=== PATIENT | female | born 1990 | race Caucasian/White ===

== ENCOUNTER 2018-12-14 21:54 | Emergency (ER) | payer BC, MEDICAID ==
[~2018-12-14] VITALS: Ht 165.1 cm; Wt 90.7 kg
[~2018-12-14 21:54] MED LIST: FLUO40CA
--- OUTSIDE RECORDS SUMMARY | 2018-12-14 22:01 | XMS REPORT | Referral Summary ---
Author Author [facility] Organization [facility] Address Unknown Phone Unavailable Care Team Providers Care Billing Department Supervisor Name Role Phone Jack Mistrymie Zeke PCP Encounter VC Date(s): 06/22/17 - 06/22/17 [facility] [address] [place], [place] [address] Discharge Diagnosis: Otalgia Discharge Diagnosis: Acute bronchitis Discharge Disposition: 01-Home or Self Care Attending Physician: Raven Iniguez Vital Signs Most recent to 1 oldest [Reference Range]: Peripheral Pulse 103 bpm Rate [60-100 bpm] *HI* (06/22/17 11:37 AM) Blood Pressure 120/68 mmHg [90-140/60-90 mmHg] (06/22/17 11:37 AM) SpO2 98 % (06/22/17 11:37 AM) Problem List Condition Effective Dates Status Health Status Informant Anemia(Confirmed) Active Asthma(Confirmed) Active Bipolar affective Active disorder(Confirmed) Chicken Active pox(Confirmed) Depression(Confirmed Active ) Hearing Active loss(Confirmed) Obesity(Confirmed) Active patient Allergies, Adverse Reactions, Alerts Substance Reaction Severity Status doxycycline1 Active erythromycin Vomit Active penicillin Rash Active 1Nausea Medications Adderall 20 mg oral tablet 20 mg 1 tabs, Oral, BID, # 60 tabs, 0 Refill(s) Start Date: 06/08/17 Status: Ordered biotin Oral, Daily, 0 Refill(s) Start Date: 12/25/16 Status: Ordered chromium picolinate Oral, Daily, 0 Refill(s) Start Date: 12/25/16 Status: Ordered folic acid Daily, 0 Refill(s) Start Date: 12/25/16 Status: Ordered Iron Chews 15 mg, Oral, Daily, 0 Refill(s) Start Date: 12/25/16 Status: Ordered lamoTRIgine 150 mg oral tablet 150 mg 1 tabs, Oral, Daily, # 30 tabs, 2 Refill(s), Pharmacy: [place], [place], 1 tabs Oral Daily Start Date: 06/08/17 Status: Ordered Lexapro 20 mg oral tablet 20 mg 1 tabs, Oral, Daily, # 30 tabs, 2 Refill(s), Pharmacy: [place], [place], 1 tabs Oral Daily Start Date: 06/08/17 Status: Ordered meloxicam 15 mg oral tablet See Instructions, TAKE ONE TABLET BY MOUTH DAILY, # 90 tabs, 1 Refill(s), Pharmacy: [place], [place] Start Date: 02/09/17 Status: Ordered Mirena 52 mg intrauteral device 1 Each, IntraUteral, Once, # 1 Each, 0 Refill(s) Start Date: 01/29/14 Status: Ordered sulfamethoxazole-trimethoprim 800 mg-160 mg oral tablet 1 tabs, Oral, BID, X 10 days, # 20 tabs, 0 Refill(s), Pharmacy: [place], [place] Start Date: 06/22/17 Stop Date: 07/02/17 Status: Ordered Vitamin B1 Daily, 0 Refill(s) Start Date: 12/25/16 Status: Ordered Vitamin B12 Daily, 0 Refill(s) Start Date: 12/25/16 Status: Ordered Vitamin B6 Daily, 0 Refill(s) Start Date: 12/25/16 Status: Ordered Vitamin C Daily, 0 Refill(s) Start Date: 12/25/16 Status: Ordered Vitamin D3 Daily, 0 Refill(s) Start Date: 12/25/16 Status: Ordered Results No data available for this section Immunizations No data available for this section Procedures Procedure Date Related Diagnosis Body Site Appendectomy section Laparoscopy1 1endometriosis Social History Social History Type Response Smoking Status Current every day smoker; Type: Cigarettes; Tobacco use per day: Pack; Started at age: 23; entered on: 01/29/14 Assessment and Plan Extracted from: Title: Office Visit Note Author: Raven Iniguez Date: 06/22/17 Acute bronchitis Patient's symptoms have been present for almost 2 weeks. Would like her to start on Septra DS. Encouraged her to continue with Flonase steroid nasal spray as well as nasal saline spray and Mucinex. Handout was given. Follow- up if no improvement. Ordered: Office Visit Level 3 Est 48295 Otalgia She may use ulze-ydy-[id number] pain drops, Auralgan. Did let her know that I believe starting the Flonase back again will be beneficial for her. Ordered: Office Visit Level 3 Est 82980
--- OUTSIDE RECORDS SUMMARY | 2018-12-14 22:01 | XMS REPORT | Referral Summary ---
Author Author [facility] Organization [facility] Address Unknown Phone Unavailable Care Team Providers Care Set Up And Lay Out Inspector Name Role Phone Ivana Mistry PCP Encounter VC Date(s): 03/02/15 - 03/02/15 [facility] [address] [place], [place] [address] Discharge Diagnosis: Fatigue Discharge Disposition: 01-Home or Self Care Attending Physician: Ivana Mistry MD Admitting Physician: Ivana Mistry MD Vital Signs Most recent to 1 oldest [Reference Range]: Peripheral Pulse 76 bpm Rate [60-100 bpm] (03/02/15 3:14 PM) Blood Pressure 110/56 mmHg [90-140/60-90 mmHg] (03/02/15 3:14 PM) SpO2 98 % (03/02/15 3:14 PM) Problem List Condition Effective Dates Status Health Status Informant Anemia(Confirmed) Active Asthma(Confirmed) Active Bipolar affective Active disorder(Confirmed) Chicken Active pox(Confirmed) Depression(Confirmed Active ) Hearing Active loss(Confirmed) Obesity(Confirmed) Active patient Allergies, Adverse Reactions, Alerts Substance Reaction Severity Status penicillin Rash Active Medications lamoTRIgine 150 mg oral tablet See Instructions, TAKE 1 TABLET BY MOUTH EVERY DAY, # 90 tabs, 2 Refill(s), eRx : [id number], TAKE 1 TABLET BY MOUTH EVERY DAY Start Date: 03/24/15 Status: Ordered Mirena 52 mg intrauteral device 1 Each, IntraUteral, Once, # 1 Each, 0 Refill(s) Start Date: 01/29/14 Status: Ordered Wellbutrin SR 150 mg/12 hours oral tablet, extended release 150 mg 1 tabs, Oral, BID, # 60 tabs, 0 Refill(s), Pharmacy: [facility], 1 tabs Oral BID Start Date: 08/10/15 Status: Ordered Results No data available for this section Immunizations No data available for this section Procedures Procedure Date Related Diagnosis Body Site Appendectomy section Laparoscopy1 1endometriosis Social History Social History Type Response Smoking Status Current every day smoker; Type: Cigarettes; Tobacco use per day: Pack; Started at age: 23 Assessment and Plan Extracted from: Title: Office Visit Note Author: Ivana Mistry MD Date: 03/02/15 Assessment/Plan Fatigue We will make arrangements for the patient to be seen in consultation by sleep medicine for consideration of a sleep study. Sleep hygiene was discussed. Ordered: Office Visit Level 2 Est 99464
--- OUTSIDE RECORDS SUMMARY | 2018-12-14 22:01 | XMS REPORT | Referral Summary ---
Author Author [facility] Organization [facility] Address Unknown Phone Unavailable Care Team Providers Care Urologist Name Role Phone Ivana Mistry PCP Encounter VC Date(s): 08/10/15 - 08/10/15 [facility] [address] [place], [place] [address] Discharge Diagnosis: Depression, major, recurrent Discharge Disposition: 01-Home or Self Care Attending Physician: Ivana Mistry MD Admitting Physician: Ivana Mistry MD Vital Signs Most recent to 1 oldest [Reference Range]: Peripheral Pulse 94 bpm Rate [60-100 bpm] (08/10/15 2:55 PM) Blood Pressure 144/76 mmHg [90-140/60-90 mmHg] *HI* (08/10/15 2:55 PM) SpO2 98 % (08/10/15 2:55 PM) Problem List Condition Effective Dates Status Health Status Informant Anemia(Confirmed) Active Asthma(Confirmed) Active Bipolar affective Active disorder(Confirmed) Chicken Active pox(Confirmed) Depression(Confirmed Active ) Hearing Active loss(Confirmed) Obesity(Confirmed) Active patient Allergies, Adverse Reactions, Alerts Substance Reaction Severity Status penicillin Rash Active Medications lamoTRIgine 150 mg oral tablet See Instructions, TAKE 1 TABLET BY MOUTH EVERY DAY, # 90 tabs, 2 Refill(s), eRx : [facility] [id number], TAKE 1 TABLET BY MOUTH EVERY DAY Start Date: 03/24/15 Status: Ordered Mirena 52 mg intrauteral device 1 Each, IntraUteral, Once, # 1 Each, 0 Refill(s) Start Date: 01/29/14 Status: Ordered Wellbutrin SR 150 mg/12 hours oral tablet, extended release 150 mg 1 tabs, Oral, BID, # 60 tabs, 0 Refill(s), Pharmacy: [facility] [id number], 1 tabs Oral BID Start Date: 08/10/15 [...] Visit Note Author: Ivana Mistry MD Date: 08/10/15 Assessment/Plan Depression, major, recurrent Switch to WellbutrinSR 150 mg daily for 3 days then increase the dose to twice a day thereafter. She was advised to call us in a fewweeks with an updateher symptoms. She may need to be referred back to psychiatry if she does not respondto current medical therapy. Sheis somewhat limitedby cost constraints any intolerability issues with previously tried medication. Ordered: Office Visit Level 3 Est 67427 Orders: buPROPion, 150 mg 1 tabs, Oral, BID, # 60 tabs, 0 Refill(s), Pharmacy : [facility] [id number], 1 tabs Oral BID
--- OUTSIDE RECORDS SUMMARY | 2018-12-14 22:01 | XMS REPORT | Referral Summary ---
Author Author [facility] Organization [facility] Address Unknown Phone Unavailable Care Team Providers Care Cage Tender Name Role Phone Ivana Mistry PCP Encounter VC Date(s): 02/13/18 - 02/13/18 [facility] [address] [place] [id number] Encounter Diagnosis Annual physical exam (Discharge Diagnosis) - 02/13/18 Moderate major depression (Discharge Diagnosis) - 02/13/18 Adult attention deficit disorder (Discharge Diagnosis) - 02/13/18 Discharge Disposition: 01-Home or Self Care Attending Physician: Ivana Mistry MD Admitting Physician: Ivana Mistry MD Vital Signs Most recent to 1 oldest [Reference Range]: Peripheral Pulse 84 bpm Rate [60-100 bpm] (02/13/18 7:35 AM) Blood Pressure 110/60 mmHg [90-140/60-90 mmHg] (02/13/18 7:35 AM) SpO2 100 % (02/13/18 7:35 AM) Problem List Condition Effective Dates Status [...] # 60 tabs, 0 Refill(s) Start Date: 02/13/18 Status: Ordered escitalopram 20 mg oral tablet See Instructions, TAKE ONE TABLET BY MOUTH EVERY DAY, # 30 tabs, 1 Refill(s), eRx: [facility]- [place], [place] Start Date: 01/15/18 Status: Ordered lamoTRIgine 150 mg oral tablet See Instructions, TAKE ONE TABLET BY MOUTH EVERY DAY, # 30 tabs, 1 Refill(s), eRx: [place], [place], TAKE ONE TABLET BY MOUTH EVERY DAY Start Date: 11/01/17 Status: Ordered meloxicam 15 mg oral tablet See Instructions, TAKE ONE TABLET BY MOUTH DAILY, # 90 tabs, eRx: [place], [place], TAKE ONE TABLET BY MOUTH DAILY Start Date: 01/09/18 Status: Ordered Mirena 52 mg intrauteral device 1 Each, IntraUteral, Once, # 1 Each, 0 Refill(s) Start Date: 01/29/14 Status: Ordered Results No data available for this section Immunizations No data available for this section Procedures Procedure Date Related Diagnosis Body Site Status Laparoscopic hysterectomy1 02/05/18 Completed Date of last PAP smear 12/26/17 Completed Appendectomy Completed section Completed Laparoscopy2 Completed 1right ovary and fallopion tube removal 2endometriosis Social History Social History Type Response Smoking Status Current every day smoker; Type: Cigarettes; Tobacco use per day: Pack; Started at age: 23; entered on: 01/29/14 Assessment and Plan Extracted from: Title: Office Visit Note Author: Ivana Mistry MD Date: 02/13/18 Adult attention deficit disorder Continue current medications at this time. Ordered: Comprehensive Metabolic Panel Lipid Panel Periodic Comp Preventive Med 18 to 39 years Est 43386 Annual physical exam Age-appropriate screening discussed. She will return for fasting lab. Continue follow-up with her yard manager as previously instructed. Ordered: CBC w/ Differential Comprehensive Metabolic Panel Lipid Panel Periodic Comp Preventive Med 18 to 39 years Est 16247 Moderate major depression Continue current medication at this time Ordered: Comprehensive Metabolic Panel Lipid Panel Periodic Comp Preventive Med 18 to 39 years Est 75704 TSH with Reflex Free T4 Carpal tunnel syndrome, bilateral. Surgery scheduled on the right side in the near future.
--- OUTSIDE RECORDS SUMMARY | 2018-12-14 22:01 | XMS REPORT | Referral Summary ---
Author Author [facility] Organization [facility] Address Unknown Phone Unavailable Care Team Providers Care Sulfuric Acid Plant Operator Name Role Phone Ivana Mistry PCP Encounter VC Date(s): 12/18/14 - 12/18/14 [facility] [address] [place], [place] [address] Discharge Diagnosis: Vaginitis Discharge Disposition: 01-Home or Self Care Attending Physician: Ivana Mistry MD Admitting Physician: Ivana Mistry MD Vital Signs Most recent to 1 oldest [Reference Range]: Peripheral Pulse 78 bpm Rate [60-100 bpm] (12/18/14 3:07 PM) Blood Pressure 120/64 mmHg [90-140/60-90 mmHg] (12/18/14 3:07 PM) SpO2 97 % (12/18/14 3:07 PM) Problem List Condition Effective Dates Status Health Status Informant Anemia(Confirmed) Active Asthma(Confirmed) Active Bipolar affective Active disorder(Confirmed) Chicken Active pox(Confirmed) Depression(Confirmed Active ) Hearing Active loss(Confirmed) Obesity(Confirmed) Active patient Allergies, Adverse Reactions, Alerts Substance Reaction Severity Status penicillin Rash Active Medications fluconazole 150 mg oral tablet See Instructions, 1 TABS ORALLY ONCE A MONTH FOR THREE MONTHS, # 3 tabs, 2 Refill(s), eRx: [facility] , 1 TABS ORALLY ONCE A MONTH FOR THREE MONTHS Start Date: 04/29/15 Status: Ordered lamoTRIgine 150 mg oral tablet See Instructions, TAKE 1 TABLET BY MOUTH EVERY DAY, # 90 tabs, 2 Refill(s), eRx : [facility] , TAKE 1 TABLET BY MOUTH EVERY DAY Start Date: 03/24/15 Status: Ordered Mirena 52 mg intrauteral device 1 Each, IntraUteral, Once, # 1 Each, 0 Refill(s) Start Date: 01/29/14 Status: Ordered PROzac 30 mg, Oral, Daily, prescribed by Dr Nahum Chaudhary, 0 Refill(s) Start Date: 12/18/14 Status: Ordered Results Microbiology Reports TEST: Genital Culture STATUS: Auth (Verified) BODY SITE: Vagina SOURCE: Vaginal COLLECTED DATE/TIME: 12/18/14 3:25 PM Genital Culture Normal vaginal deshawn present Gardnerella vaginalis Predominant amount ORGANISM:Gardnerella vaginalis Immunizations No data available for this section Procedures Procedure Date Related Diagnosis Body Site Appendectomy section Laparoscopy1 1endometriosis Social History Social History Type Response Smoking Status Current every day smoker; Type: Cigarettes; Tobacco use per day: Pack; Started at age: 23 Assessment and Plan Extracted from: Title: Office Visit Note Author: Ivana Mistry MD Date: 12/18/14 Assessment/Plan Vaginitis Suspect recurrent bacterial vaginosis. Await hangingdrop and culture report and treat accordingly Ordered: Genital Culture Hanging Drop Office Visit Level 3 Est 33259
--- OUTSIDE RECORDS SUMMARY | 2018-12-14 22:01 | XMS REPORT | Referral Summary ---
Author Author [facility] Organization [facility] Address Unknown Phone Unavailable Care Team Providers Care Development Technologist Name Role Phone Ivana Mistry PCP Encounter VC Date(s): 04/23/15 - 04/23/15 [facility] [address] [place] [id number] Discharge Diagnosis: Bilateral otitis media Discharge Diagnosis: Acute pharyngitis Discharge Disposition: 01-Home or Self Care Attending Physician: Ivana Mistry MD Admitting Physician: Ivana Mistry MD Vital Signs Most recent to 1 oldest [Reference Range]: Temperature Oral 36.7 degC [35.8-37.3 degC] (04/23/15 2:43 PM) Peripheral Pulse 80 bpm Rate [60-100 bpm] (04/23/15 2:43 PM) Blood Pressure 108/62 mmHg [90-140/60-90 mmHg] (04/23/15 2:43 PM) SpO2 98 % (04/23/15 2:43 PM) Problem List Condition Effective Dates Status Health Status Informant Anemia(Confirmed) Active Asthma(Confirmed) Active Bipolar affective Active disorder(Confirmed) Chicken Active pox(Confirmed) Depression(Confirmed Active ) Hearing Active loss(Confirmed) Obesity(Confirmed) Active patient Allergies, Adverse Reactions, Alerts Substance Reaction Severity Status penicillin Rash Active Medications lamoTRIgine 150 mg oral tablet See Instructions, TAKE 1 TABLET BY MOUTH EVERY DAY, # 90 tabs, 2 Refill(s), eRx : [facility] [address], TAKE 1 TABLET BY MOUTH EVERY DAY Start Date: 03/24/15 Status: Ordered Mirena 52 mg intrauteral device 1 Each, IntraUteral, Once, # 1 Each, 0 Refill(s) Start Date: 01/29/14 Status: Ordered Wellbutrin SR 150 mg/12 hours oral tablet, extended release 150 mg 1 tabs, Oral, BID, # 180 tabs, 3 Refill(s), Pharmacy: [facility]- [place], [place], 1 tabs Oral BID Start Date: 09/13/15 Status: Ordered Results No data available for [...] Visit Note Author: Ivana Mistry MD Date: 04/25/15 Assessment/Plan Acute pharyngitis The patient was initiated on empiric antibiotic therapy. She may continue nndr-eus-cvdyzxu meds for symptomatic relief Ordered: Office Visit Level 3 Est 58899 Bilateral otitis media The patient was initiated on antibiotic therapy. She was advised to call if her symptoms don't improve over the weekend. She may need ENT consultation. Ordered: Office Visit Level 3 Est 50332
--- OUTSIDE RECORDS SUMMARY | 2018-12-14 22:01 | XMS REPORT | Referral Summary ---
Author Author [facility] Organization [facility] Address Unknown Phone Unavailable Care Team Providers Care Technical Services Assistant Name Role Phone Ivana Mistry PCP Encounter VC Date(s): 03/28/16 - 03/28/16 [facility] [address] [place] [id number] Discharge Diagnosis: Acute bacterial sinusitis Discharge Diagnosis: Acute pain of left ear Discharge Disposition: 01-Home or Self Care Attending Physician: Ivana Mistry MD Admitting Physician: Ivana Mistry MD Vital Signs Most recent to 1 oldest [Reference Range]: Temperature Oral 37.1 degC [35.8-37.3 degC] (03/28/16 11:34 AM) Peripheral Pulse 95 bpm Rate [60-100 bpm] (03/28/16 11:34 AM) Blood Pressure 120/70 mmHg [90-140/60-90 mmHg] (03/28/16 11:34 AM) SpO2 98 % (03/28/16 11:34 AM) Problem List Condition Effective Dates Status Health Status Informant Anemia(Confirmed) Active Asthma(Confirmed) Active Bipolar affective Active disorder(Confirmed) Chicken Active pox(Confirmed) Depression(Confirmed Active ) Hearing Active loss(Confirmed) Obesity(Confirmed) Active patient Allergies, Adverse Reactions, Alerts Substance Reaction Severity Status penicillin Rash Active Medications Adderall 30 mg oral tablet 30 mg 1 tabs, Oral, TID, 0 Refill(s) Start Date: 03/28/16 Status: Ordered doxycycline hyclate 100 mg oral tablet 100 mg 1 tabs, Oral, BID, X 10 days, # 20 tabs, 0 Refill(s), Pharmacy: [facility] [id number], 1 tabs Oral BID,x10 days Start Date: 03/28/16 Stop Date: 04/07/16 Status: Ordered lamoTRIgine 150 mg oral tablet See Instructions, TAKE 1 TABLET BY MOUTH EVERY DAY, # 90 tabs, 2 Refill(s), eRx : [facility] [address], TAKE 1 TABLET BY MOUTH EVERY DAY Start Date: 03/24/15 Status: Ordered Mirena 52 mg intrauteral device 1 Each, IntraUteral, Once, # 1 Each, 0 Refill(s) Start Date: 01/29/14 Status: Ordered multivitamin Daily, 0 Refill(s) Start Date: 03/28/16 Status: Ordered Pristiq 50 mg oral tablet, extended release 50 mg 1 tabs, Oral, Daily, # 30 tabs, 0 Refill(s) Start Date: 03/28/16 Status: Ordered Rexulti 1 mg, Oral, Daily, 0 Refill(s) Start Date: 03/28/16 Status: Ordered Results No data available for [...] Visit Note Author: Ivana Mistry MD Date: 03/28/16 Assessment/Plan Acute bacterial sinusitis The patient was placed on doxycycline and milligrams by mouth twice a day for 10 days. She was advised to continue with pnui-lel-wkjdbyn meds for symptomatic relief. Ordered: Office Visit Level 3 Est 97066 Acute pain of left ear Doxycycline was sent to the pharmacy Ordered: Office Visit Level 3 Est 56346 Orders: doxycycline, 100 mg 1 tabs, Oral, BID, X 10 days, # 20 tabs, 0 Refill( s), Pharmacy: [facility] [id number], 1 tabs Oral BID,x10 days
--- OUTSIDE RECORDS SUMMARY | 2018-12-14 22:01 | XMS REPORT | Referral Summary ---
Author Author [facility]3] Organization [facility]] Address Unknown Phone Unavailable Care Team Providers Care Panel Builder Name Role Phone Ivana Mistry PCP Encounter VC Date(s): 02/21/18 - 02/21/18 [facility]] [address] [place] [address] Discharge Disposition: 01-Home or Self Care Attending Physician: Ricky Arvizu MD Admitting Physician: Ricky Arvizu MD Vital Signs Most recent to 1 oldest [Reference Range]: Temperature Temporal 36.8 degC Artery [36.3-37.8 (02/21/18 1:05 PM) degC] Peripheral Pulse 87 bpm Rate [60-100 bpm] (02/21/18 1:45 PM) Respiratory Rate 18 br/min [14-20 br/min] (02/21/18 1:45 PM) Blood Pressure 117/80 mmHg [90-140/60-90 mmHg] (02/21/18 1:45 PM) SpO2 99 % (02/21/18 1:45 PM) Problem List Condition Effective Dates Status [...] 0 Refill(s) Start Date: 02/13/18 Status: Ordered lamoTRIgine 150 mg oral tablet See Instructions, TAKE ONE TABLET BY MOUTH EVERY DAY, # 30 tabs, 1 Refill(s), eRx: [facility] [place], [place], TAKE ONE TABLET BY MOUTH EVERY DAY Start Date: 11/01/17 Status: Ordered Lexapro 20 mg oral tablet 20 mg 1 tabs, Oral, Daily, # 30 tabs, 0 Refill(s) Start Date: 02/21/18 Status: Ordered meloxicam 15 mg oral tablet See Instructions, TAKE ONE TABLET BY MOUTH DAILY, # 90 tabs, eRx: [facility] [place] [place], TAKE ONE TABLET BY MOUTH DAILY Start Date: 01/09/18 Status: Ordered Mirena 52 mg intrauteral device 1 Each, IntraUteral, Once, # 1 Each, 0 Refill(s) Start Date: 01/29/14 Status: Ordered Results Chemistry Most recent to 1 oldest [Reference Range]: Screen, Negative Urine NPT (02/21/18 9:26 AM) Blood Glucose, 94 mg/dL Capillary [70-100 (02/21/18 9:39 AM) mg/dL] Immunizations No data available for this section Procedures Procedure Date Related Diagnosis Body Site Status Release Carpal Tunnel1 02/21/18 Completed Laparoscopic hysterectomy2 02/05/18 Completed Date of last PAP smear 12/26/17 Completed Appendectomy Completed section Completed Laparoscopy3 Completed [place] tooth Completed 1auto-populated from documented surgical case 2right ovary and fallopion tube removal 3endometriosis Social History Social History Type Response Smoking Status Current every day smoker; Type: Cigarettes; Tobacco use per day: Pack; Started at age: 23; entered on: 01/29/14 Assessment and Plan No data available for this section
--- OUTSIDE RECORDS SUMMARY | 2018-12-14 22:02 | XMS REPORT | Referral Summary ---
Author Author [facility] Organization [facility] Address Unknown Phone Unavailable Care Team Providers Care Aids Nurse Name Role Phone Ivana Mistry PCP Encounter VC Date(s): 12/03/17 - 12/03/17 [facility] [address] [id number] Encounter Diagnosis Fatigue (Discharge Diagnosis) - 12/03/17 Bilateral carpal tunnel syndrome (Discharge Diagnosis) - 12/03/17 Discharge Disposition: 01-Home or Self Care Attending Physician: Ivana Mistry MD Admitting Physician: Ivana Mistry MD Vital Signs Most recent to 1 oldest [Reference Range]: Peripheral Pulse 120 bpm Rate [60-100 bpm] *HI* (12/03/17 3:44 PM) Blood Pressure 134/70 mmHg [90-140/60-90 mmHg] (12/03/17 3:44 PM) SpO2 99 % (12/03/17 3:44 PM) Problem List Condition Effective Dates Status [...] # 60 tabs, 0 Refill(s) Start Date: 10/12/17 Status: Ordered chromium picolinate Oral, Daily, 0 Refill(s) Start Date: 12/25/16 Status: Ordered Differin 0.1% topical cream 1 brad, Topical, Bedtime (once a day), # 15 g, 0 Refill(s) Start Date: 10/12/17 Status: Ordered escitalopram 20 mg oral tablet See Instructions, TAKE ONE TABLET BY MOUTH EVERY DAY, # 30 tabs, 1 Refill(s), eRx: [place], [place], TAKE ONE TABLET BY MOUTH EVERY DAY Start Date: 11/12/17 Status: Ordered folic acid Daily, 0 Refill(s) Start Date: 12/25/16 Status: Ordered Iron Chews 15 mg, Oral, Daily, 0 Refill(s) Start Date: 12/25/16 Status: Ordered lamoTRIgine 150 mg oral tablet See Instructions, TAKE ONE TABLET BY MOUTH EVERY DAY, # 30 tabs, 1 Refill(s), eRx: [place], TAKE ONE TABLET BY MOUTH EVERY DAY Start Date: 11/01/17 Status: Ordered meloxicam 15 mg oral tablet 15 mg 1 tabs, Oral, Daily, # 90 tabs, 0 Refill(s) Start Date: 10/12/17 Status: Ordered Mirena 52 mg intrauteral device 1 Each, IntraUteral, Once, # 1 Each, 0 Refill(s) Start Date: 01/29/14 Status: Ordered Vitamin B1 Daily, 0 Refill(s) Start Date: 12/25/16 Status: Ordered Vitamin B12 Daily, 0 Refill(s) Start Date: 12/25/16 Status: Ordered Vitamin B6 Daily, 0 Refill(s) Start Date: 12/25/16 Status: Ordered Vitamin C Daily, 0 Refill(s) Start Date: 12/25/16 Status: Ordered Vitamin D3 Daily, 0 Refill(s) Start Date: 12/25/16 Status: Ordered Results Hematology Most recent to 1 oldest [Reference Range]: WBC [4.8-10.8 6.0 10*3/uL 10*3/uL] (12/03/17 4:20 PM) RBC [4.00-5.20] 5.25 *HI* (12/03/17 4:20 PM) Hgb [12.0-16.0 13.3 gm/dL gm/dL] (12/03/17 4:20 PM) Hct [37.0-47.0 %] 43.4 % (12/03/17 4:20 PM) MCV [82.0-99.0 fL] 82.7 fL (12/03/17 4:20 PM) MCH [27.0-32.0 pg] 25.3 pg *LOW* (12/03/17 4:20 PM) MCHC [32.0-36.0 30.6 gm/dL gm/dL] *LOW* (12/03/17 4:20 PM) RDW [11.5-14.5 %] 13.3 % (12/03/17 4:20 PM) Platelet [150-400 370 10*3/uL 10*3/uL] (12/03/17 4:20 PM) MPV [8.8-14.8 fL] 9.7 fL (12/03/17 4:20 PM) Immature 0.3 % Granulocytes (12/03/17 4:20 PM) [0.0-1.0 %] Neutrophils [51-75 50 % %] *LOW* (12/03/17 4:20 PM) Lymphocytes [20-46 38 % %] (12/03/17 4:20 PM) Monocytes [4-11 %] 9 % (12/03/17 4:20 PM) Eosinophils [0-4 %] 3 % (12/03/17 4:20 PM) Basophils [0-2 %] 0 % (12/03/17 4:20 PM) Neutro Absolute 2.99 [1.90-7.00] (12/03/17 4:20 PM) Lymph Absolute 2.30 [0.80-3.30] (12/03/17 4:20 PM) [place] Absolute 0.51 [0.30-1.00] (12/03/17 4:20 PM) Eos Absolute 0.15 [0.00-0.50] (12/03/17 4:20 PM) Baso Absolute 0.02 [0.00-0.20] (12/03/17 4:20 PM) Nucleated RBC 0.0 /100 WBC Automated [0 /100 (12/03/17 4:20 PM) WBC] Chemistry Most recent to 1 oldest [Reference Range]: TSH with Reflex Free 2.60 mcIU/mL T4 [0.35-4.94 (12/03/17 4:20 PM) mcIU/mL] Immunizations No data available for this section Procedures Procedure Date Related Diagnosis Body Site Status Appendectomy Completed section Completed Laparoscopy1 Completed 1endometriosis Social History Social History Type Response Smoking Status Current every day smoker; Type: Cigarettes; Tobacco use per day: Pack; Started at age: 23; entered on: 01/29/14 Assessment and Plan Extracted from: Title: Office Visit Note Author: Ivana Mistry MD Date: 12/03/17 Bilateral carpal tunnel syndrome Persistent symptoms despite conservative measures. Arrange for nerve conduction studies. We'll most likely need surgical consultation. Ordered: Office Visit Level 4 Est 55446 Fatigue Check CBC and TSH. Ordered: CBC w/ Differential Office Visit Level 4 Est 18287 TSH with Reflex Free T4 Recent diagnosis of strep pharyngitis. The patient completed her antibiotic a few days ago with some improvement. If symptoms fail to resolve over the next few days, she was instructed to contact us for further recommendations. She also has a history of tympanoplasty tube placement She is exposed experiencing some bilateralear discomfort. May need referral back to ENT.
--- OUTSIDE RECORDS SUMMARY | 2018-12-14 22:02 | XMS REPORT | Referral Summary ---
Author Author [facility] Organization [facility] Address Unknown Phone Unavailable Care Team Providers Care Associate Media Planner Name Role Phone Ivana Mistry PCP Encounter VC Date(s): 12/25/16 - 12/25/16 [facility] [address] [place] [id number] Discharge Diagnosis: Carpal tunnel syndrome Discharge Diagnosis: Night sweats Discharge Diagnosis: Bruising Discharge Disposition: 01-Home or Self Care Attending Physician: Ivana Mistry MD Admitting Physician: Ivana Mistry MD Vital Signs Most recent to 1 oldest [Reference Range]: Peripheral Pulse 92 bpm Rate [60-100 bpm] (12/25/16 1:30 PM) Blood Pressure 140/68 mmHg [90-140/60-90 mmHg] (12/25/16 1:30 PM) SpO2 99 % (12/25/16 1:30 PM) Problem List Condition Effective Dates Status Health Status Informant Anemia(Confirmed) Active Asthma(Confirmed) Active Bipolar affective Active disorder(Confirmed) Chicken Active pox(Confirmed) Depression(Confirmed Active ) Hearing Active loss(Confirmed) Obesity(Confirmed) Active patient Allergies, Adverse Reactions, Alerts Substance Reaction Severity Status doxycycline1 Active erythromycin Vomit Active penicillin Rash Active 1Nausea Medications biotin Oral, Daily, 0 Refill(s) Start Date: 12/25/16 Status: Ordered chromium picolinate Oral, Daily, 0 Refill(s) Start Date: 12/25/16 Status: Ordered dextroamphetamine-amphetamine 20 mg oral tablet 20 mg 1 tabs, Oral, BID, 0 Refill(s) Start Date: 12/25/16 Status: Ordered escitalopram 20 mg oral tablet TK 1 T PO QD Start Date: 12/25/16 Status: Ordered folic acid Daily, 0 Refill(s) Start Date: 12/25/16 Status: Ordered Iron Chews 15 mg, Oral, Daily, 0 Refill(s) Start Date: 12/25/16 Status: Ordered lamoTRIgine 150 mg oral tablet See Instructions, TAKE 1 TABLET BY MOUTH EVERY DAY, # 90 tabs, 2 Refill(s), eRx : [facility] [id number], TAKE 1 TABLET BY MOUTH EVERY DAY [...] to 1 oldest [Reference Range]: WBC [4.8-10.8 5.4 10*3/uL 10*3/uL] (12/25/16 2:05 PM) RBC [4.00-5.20] 5.22 *HI* (12/25/16 2:05 PM) Hgb [12.0-16.0 13.4 gm/dL gm/dL] (12/25/16 2:05 PM) Hct [37.0-47.0 %] 42.3 % (12/25/16 2:05 PM) MCV [82.0-99.0 fL] 81.0 fL *LOW* (12/25/16 2:05 PM) MCH [27.0-32.0 pg] 25.7 pg *LOW* (12/25/16 2:05 PM) MCHC [32.0-36.0 31.7 gm/dL gm/dL] *LOW* (12/25/16 2:05 PM) RDW [11.5-14.5 %] 13.4 % (12/25/16 2:05 PM) Platelet [150-400 301 10*3/uL 10*3/uL] (12/25/16 2:05 PM) MPV [8.8-14.8 fL] 10.0 fL (12/25/16 2:05 PM) Immature 0.4 % Granulocytes (12/25/16 2:05 PM) [0.0-1.0 %] Neutrophils [51-75 60 % %] (12/25/16 2:05 PM) Lymphocytes [20-46 29 % %] (12/25/16:05 PM) Monocytes [4-11 %] 9 % (12/25/16 2:05 PM) Eosinophils [0-4 %] 2 % (12/25/16:05 PM) Basophils [0-2 %] 0 % (12/25/16:05 PM) Neutro Absolute 3.23 [1.90-7.00] (12/25/16 2:05 PM) Lymph Absolute 1.55 [0.80-3.30] (12/25/16:05 PM) [place] Absolute 0.49 [0.30-1.00] (12/25/16 2:05 PM) Eos Absolute 0.09 [0.00-0.50] (12/25/16 2:05 PM) Baso Absolute 0.01 [0.00-0.20] (12/25/16:05 PM) Chemistry Most recent to 1 oldest [Reference Range]: Sodium Lvl [135-144 140 mEq/L mEq/L] (12/25/16 2:05 PM) Potassium Lvl 4.2 mEq/L [3.5-5.2 mEq/L] (12/25/16 2:05 PM) Chloride [99-111 102 mEq/L mEq/L] (12/25/16 2:05 PM) CO2 [22-31 mEq/L] 31 mEq/L (12/25/16:05 PM) AGAP [3-20 mEq/L] 7 mEq/L (12/25/16 2:05 PM) BUN [7-19 mg/dL] 12 mg/dL (12/25/16 2:05 PM) Glucose Lvl [70-99 71 mg/dL mg/dL] (12/25/16 2:05 PM) Creatinine Lvl 0.80 mg/dL [0.57-1.11 mg/dL] (12/25/16 2:05 PM) eGFR [>60 mL/min] >60 mL/min 1 (12/25/16 2:05 PM) Calcium Lvl 9.7 mg/dL [8.4-10.2 mg/dL] (12/25/16 2:05 PM) Albumin Lvl [3.5-5.0 4.3 gm/dL gm/dL] (12/25/16 2:05 PM) Total Protein 6.8 gm/dL [6.1-7.7 gm/dL] (12/25/16 2:05 PM) Globulin [1.8-4.0 2.5 gm/dL gm/dL] (12/25/16 2:05 PM) ALT [0-55 U/L] 22 U/L (12/25/16 2:05 PM) AST [5-34 U/L] 18 U/L (12/25/16 2:05 PM) Alk Phos [40-150 50 U/L U/L] (12/25/16 2:05 PM) Bili Total [0.2-1.2 0.3 mg/dL mg/dL] (12/25/16 2:05 PM) TSH with Reflex Free 1.88 T4 [0.35-4.94] (12/25/16 2:05 PM) 1Result Comment: Multiply eGFR results by 1.21 for race. Immunizations No data available for this section Procedures Procedure Date Related Diagnosis Body Site Collection of venous blood by venipuncture 12/25/16 Appendectomy section Laparoscopy1 1endometriosis Social History Social History Type Response Smoking Status Current every day smoker; Type: Cigarettes; Tobacco use per day: Pack; Started at age: 23 Assessment and Plan Extracted from: Title: Office Visit Note Author: Ivana Mistry MD Date: 12/25/16 Assessment/Plan Bruising,Bruising Check CBC. She was advised to limit the use of anti-inflammatory agents Ordered: CBC w/ Differential Office Visit Level 4 Est 90502 Carpal tunnel syndrome Continue wearing the splints and avoid aggravating activities. She will need to limit the use of anti-inflammatory agents due to the bruising. She was encouraged to initiate a B complex vitamin Ordered: Office Visit Level 4 Est 11840 Night sweats,Night sweats Check TSH and metabolic profile. Could possibly be medication related although the patient again denies any changein her medication Ordered: Comprehensive Metabolic Panel Office Visit Level 4 Est 41225 TSH with Reflex Free T4
--- OUTSIDE RECORDS SUMMARY | 2018-12-14 22:02 | XMS REPORT | Referral Summary ---
Author Author [facility] Organization [facility] Address Unknown Phone Unavailable Care Team Providers Care Material Handling Crew Supervisor Name Role Phone Ivana Mistry PCP Encounter VC Date(s): 06/12/16 - 06/12/16 [facility] [address] [place], [place] [address] Discharge Diagnosis: Dysfunction of left Eustachian tube Discharge Diagnosis: Cough Discharge Diagnosis: Acute URI Discharge Diagnosis: Otitis media, non-suppurative, acute Discharge Disposition: 01-Home or Self Care Attending Physician: Raven Iniguez Admitting Physician: Raven Iniguez Vital Signs Most recent to 1 oldest [Reference Range]: Temperature Oral 36.7 degC [35.8-37.3 degC] (06/12/16 10:06 AM) Peripheral Pulse 117 bpm Rate [60-100 bpm] *HI* (06/12/16 10:06 AM) Blood Pressure 110/60 mmHg [90-140/60-90 mmHg] (06/12/16 10:06 AM) SpO2 99 % (06/12/16 10:06 AM) Problem List Condition Effective Dates Status Health Status Informant Anemia(Confirmed) Active Asthma(Confirmed) Active Bipolar affective Active disorder(Confirmed) Chicken Active pox(Confirmed) Depression(Confirmed Active ) Hearing Active loss(Confirmed) Obesity(Confirmed) Active patient Allergies, Adverse Reactions, Alerts Substance Reaction Severity Status doxycycline1 Active erythromycin Vomit Active penicillin Rash Active 1Nausea Medications Adderall 30 mg oral tablet 30 mg 1 tabs, Oral, TID, 0 Refill(s) Start Date: 03/28/16 Status: Ordered lamoTRIgine 150 mg oral tablet See Instructions, TAKE 1 TABLET BY MOUTH EVERY DAY, # 90 tabs, 2 Refill(s), eRx : [facility] [id number], TAKE 1 TABLET BY MOUTH EVERY DAY [...] 0 Refill(s) Start Date: 03/28/16 Status: Ordered sulfamethoxazole-trimethoprim 800 mg-160 mg oral tablet 1 tabs, Oral, BID, X 10 days, # 20 tabs, 0 Refill(s), Pharmacy: [facility] [id number] Start Date: 06/12/16 Stop Date: 06/22/16 Status: Ordered Results No data available for this section Immunizations No data available for this section Procedures Procedure Date Related Diagnosis Body Site Appendectomy section Laparoscopy1 1endometriosis Social History Social History Type Response Smoking Status Current every day smoker; Type: Cigarettes; Tobacco use per day: Pack; Started at age: 23 Assessment and Plan Extracted from: Title: Office Visit Note Author: Raven Iniguez Date: 06/12/16 Assessment/Plan Acute URI Advised symptomatic relief. Ordered: Office Visit Level 3 Est 81192 Cough Rhmuljpkzzi-[id number]-[id number] medication for cough suppressant. Ordered: Office Visit Level 3 Est 62855 Dysfunction of left Eustachian tube Patient apparently he has had troubles withdiminished hearing and eustachian tubeproblems in the past for she has had to have atube placed. She states that she fails oral medications and would prefer to do a trial of a steroid injection to see if this will help open the tube. Decadron and Kenalog were given today. She may continue decongestants for in the next couple days. I've asked her to start a steroid nasal spray. Ordered: Office Visit Level 3 Est 83374 Otitis media, non-suppurative, acute Start Septra DS. Advise other symptomatic relief. She is allergic to severalantibiotics. Ordered: Office Visit Level 3 Est 56679
--- OUTSIDE RECORDS SUMMARY | 2018-12-14 22:02 | XMS REPORT | Referral Summary ---
Author Author [facility] Organization [facility] Address Unknown Phone Unavailable Care Team Providers Care Furniture Shampooer Name Role Phone Ivana Mistry PCP Encounter VC Date(s): 01/08/18 - 01/08/18 [facility] [address] [place], [place] [address] Encounter Diagnosis ADD (attention deficit disorder) (Discharge Diagnosis) - 01/08/18 Discharge Disposition: 01-Home or Self Care Attending Physician: Raven Iniguez Admitting Physician: Raven Iniguez Vital Signs Most recent to 1 oldest [Reference Range]: Peripheral Pulse 98 bpm Rate [60-100 bpm] (01/08/18 10:22 AM) Blood Pressure 120/70 mmHg [90-140/60-90 mmHg] (01/08/18 10:22 AM) SpO2 98 % (01/08/18 10:22 AM) Problem List Condition Effective Dates Status Health Status Informant Anemia(Confirmed) Active Asthma(Confirmed) Active Bipolar affective Active disorder(Confirmed) Chicken Active pox(Confirmed) Depression(Confirmed Active ) Hearing Active loss(Confirmed) Obesity(Confirmed) Active patient Allergies, Adverse Reactions, Alerts Substance Reaction Severity Status doxycycline1 Active erythromycin Vomit Active penicillin Rash Active 1Nausea Medications Adderall 20 mg oral tablet 20 mg 1 tabs, Oral, BID, may fill on 01/08/18, # 60 tabs, 0 Refill(s) Start Date: 01/08/18 Status: Ordered chromium picolinate Oral, Daily, 0 Refill(s) Start Date: 12/25/16 Status: Ordered Differin 0.1% topical cream 1 brad, Topical, Bedtime (once a day), # 15 g, 0 Refill(s) Start Date: 10/12/17 Status: Ordered escitalopram 20 mg oral tablet See Instructions, TAKE ONE TABLET BY MOUTH EVERY DAY, # 30 tabs, 1 Refill(s), eRx: [place], [place], TAKE ONE TABLET BY MOUTH EVERY DAY Start Date: 11/12/17 Status: Ordered folic acid Daily, 0 Refill(s) Start Date: 12/25/16 Status: Ordered Iron Chews 15 mg, Oral, Daily, 0 Refill(s) Start Date: 12/25/16 Status: Ordered lamoTRIgine 150 mg oral tablet See Instructions, TAKE ONE TABLET BY MOUTH EVERY DAY, # 30 tabs, 1 Refill(s), eRx: [place], [place], TAKE ONE TABLET BY MOUTH EVERY [...] Office Visit Note Author: Raven Iniguez Date: 01/08/18 ADD (attention deficit disorder) Patient has been diagnosed with attention deficit disorder previously and has been on the Adderall for some time. Did refill her medication for 1 month at appointment today. She will keep her follow-up appointment with Dr. Mistry. Ordered: Office Visit Level 3 Est 08721
--- OUTSIDE RECORDS SUMMARY | 2018-12-14 22:02 | XMS REPORT | Referral Summary ---
Author Organization Unknown Address Unknown Phone Unavailable Care Team Providers Care Assistant Research Scientist Name Role Phone Ivana Mistry PCP Encounter VC Date(s): 08/31/14 - 08/31/14 [facility] Internal Medicine [id number] [place] [id number] Discharge Diagnosis: Bipolar affective disorder Discharge Disposition: Home or Self Care Attending Physician: Ivana Mistry MD Admitting Physician: Ivana Mistry MD Vital Signs Most recent to 1 oldest [Reference Range]: Peripheral Pulse 96 bpm Rate [60-100 bpm] (08/31/14 3:09 PM) Blood Pressure 120/70 mmHg [90-140/60-90 mmHg] (08/31/14 3:09 PM) Most recent to 1 oldest [Reference Range]: SpO2 98 % (08/31/14 3:09 PM) Problem List Condition Effective Dates Status Health Status Informant Anemia(Confirmed) Active Asthma(Confirmed) Active Bipolar affective Active disorder(Confirmed) Chicken Active pox(Confirmed) Depression(Confirmed Active ) Hearing Active loss(Confirmed) Obesity(Confirmed) Active patient Allergies, Adverse Reactions, Alerts Substance Reaction Severity Status penicillin Rash Active Medications LaMICtal 150 mg oral tablet 1 tabs, Oral, Daily, # 90 tabs, 1 Refill(s), Pharmacy: [facility], 1 tabs Oral Daily Start Date: 07/08/14 Status: Ordered Lexapro 10 mg oral tablet 1 tabs, Oral, Daily, # 30 tabs, 1 Refill(s), Pharmacy: [facility] [id number], 1 tabs Oral Daily Start Date: 08/12/14 Status: Ordered Mirena 52 mg intrauteral device [...] Visit Note Author: Ivana Mistry MD Date: 08/31/14 Assessment/Plan Bipolar affective disorder she is experiencing uncontrollable symptoms at this time. Due to somewhat refractory symptoms and complicated history, I suggested that we refer to psychiatry for further management of her medications. Ordered: Office Visit Level 3 Est 20463
--- OUTSIDE RECORDS SUMMARY | 2018-12-14 22:02 | XMS REPORT | Referral Summary ---
Author Author [facility] Organization [facility] Address Unknown Phone Unavailable Care Team Providers Care Electrical Maintenance Man Name Role Phone Ivana Mistry PCP Encounter VC Date(s): 06/08/17 - 06/08/17 [facility] [address] [place] [address] Discharge Diagnosis: Bipolar affective disorder Discharge Diagnosis: ADD (attention deficit disorder) Discharge Diagnosis: Acute pain of left shoulder Discharge Disposition: -Home or Self Care Attending Physician: Ivana Mistry MD Admitting Physician: Ivana Mistry MD Vital Signs Most recent to 1 oldest [Reference Range]: Peripheral Pulse 103 bpm Rate [60-100 bpm] *HI* (06/08/17 3:28 PM) Blood Pressure 134/64 mmHg [90-140/60-90 mmHg] (06/08/17 3:28 PM) SpO2 98 % (06/08/17 3:28 PM) Problem List Condition Effective Dates Status [...] Daily, # 30 tabs, 2 Refill(s), Pharmacy: [place], [place], 1 tabs Oral Daily Start Date: 06/08/17 Status: Ordered Lexapro 20 mg oral tablet 20 mg 1 tabs, Oral, Daily, # 30 tabs, 2 Refill(s), Pharmacy: [place], [place], 1 tabs Oral Daily Start Date: 06/08/17 Status: Ordered Medrol Dosepak 4 mg oral tablet See Instructions, as directed on package labeling, # 1 packets, 0 Refill(s), Pharmacy: [place], [place], as directed on package labeling Start Date: 06/08/17 Stop Date: 06/09/17 Status: Ordered meloxicam 15 mg oral tablet See Instructions, TAKE ONE TABLET BY MOUTH DAILY, # 90 tabs, 1 Refill(s), Pharmacy: [place], [place] Start Date: 02/09/17 Status: Ordered Mirena [...] 01/29/14 Assessment and Plan Extracted from: Title: Ambulatory Patient Education Author: Ivana Mistry MD Date: 06/08 Orthopedics Shoulder Range of Motion Exercises Shoulder range of motion (ROM) exercises are designed to keep the shoulder moving freely. They are often recommended for people who have shoulder pain. MOVEMENT EXERCISE When you are able, do this exercise 5 6 days per week, or as told by your health care provider. Work toward doing 2 sets of 10 swings. Pendulum Exercise How To Do This Exercise Lying Down 1.Lie face-down on a bed with your abdomen close to the side of the bed. 2.Let your arm hang over the side of the bed. 3.Relax your shoulder, arm, and hand. 4.Slowly and gently swing your arm forward and back. Do not use your neck muscles to swing your arm. They should be relaxed. If you are struggling to swing your arm, have someone gently swing it for you. When you do this exercise for the first time, swing your arm at a 15 degree angle for 15 seconds, or swing your arm 10 times. As pain lessens over time, increase the angle of the swing to 30 45 degrees. 5.Repeat steps 1 4 with the other arm. How To Do This Exercise While Standing 1.Stand next to a sturdy chair or table and hold on to it with your hand. Bend forward at the waist. Bend your knees slightly. Relax your other arm and let it hang limp. Relax the shoulder blade of the arm that is hanging and let it drop. While keeping your shoulder relaxed, use body motion to swing your arm in small circles. The first time you do this exercise, swing your arm for about 30 seconds or 10 times. When you do it next time, swing your arm for a little longer. Stand up tall and relax. Repeat steps 1 7, this time changing the direction of the circles. 2.Repeat steps 1 8 with the other arm. STRETCHING EXERCISES Do these exercises 3 4 times per day on 5 6 days per week or as told by your health care provider. Work toward holding the stretch for 20 seconds. Stretching Exercise 1 1.Lift your arm straight out in front of you. 2.Bend your arm 90 degrees at the elbow (right angle) so your forearm goes across your body and looks like the letter "L." 3.Use your other arm to gently pull the elbow forward and across your body. 4.Repeat steps 1 3 with the other arm. Stretching Exercise 2 You will need a towel or rope for this exercise. 1.Bend one arm behind your back with the palm facing outward. 2.Hold a towel with your other hand. 3.Reach the arm that holds the towel above your head, and bend that arm at the elbow. Your wrist should be behind your neck. 4.Use your free hand to grab the free end of the towel. 5.With the higher hand, gently pull the towel up behind you. 6.With the lower hand, pull the towel down behind you. 7.Repeat steps 1 6 with the other arm. STRENGTHENING EXERCISES Do each of these exercises at four different times of day (sessions) every day or as told by your health care provider. To begin with, repeat each exercise 5 times (repetitions). Work toward doing 3 sets of 12 repetitions or as told by your health care provider. Strengthening Exercise 1 You will need a light weight for this activity. As you grow stronger, you may use a heavier weight. 1.Standing with a weight in your hand, lift your arm straight out to the side until it is at the same height as your shoulder. 2.Bend your arm at 90 degrees so that your fingers are pointing to the ceiling. 3.Slowly raise your hand until your arm is straight up in the air. 4.Repeat steps 1 3 with the other arm. Strengthening Exercise 2 You will need a light weight for this activity. As you grow stronger, you may use a heavier weight. 1.Standing with a weight in your hand, gradually move your straight arm in an arc, starting at your side, then out in front of you, then straight up over your head. 2.Gradually move your other arm in an arc, starting at your side, then out in front of you, then straight up over your head. 3.Repeat steps 1 2 with the other arm. Strengthening Exercise 3 You will need an elastic band for this activity. As you grow stronger, gradually increase the size of the bands or increase the number of bands that you use at one time. 1.While standing, hold an elastic band in one hand and raise that arm up in the air. 2.With your other hand, pull down the band until that hand is by your side. 3.Repeat steps 1 2 with the other arm. This information is not intended to replace advice given to you by your health care provider. Make sure you discuss any questions you have with your health care provider. Document Released: 04/20/2004 Document Revised: 12/07/2015 Document Reviewed: [employer] Interactive Patient Education 2017 [employer] No follow up information was provided. Extracted from: Title: Office Visit Note Author: Ivana Mistry MD Date: 06/08/17 Acute pain of left shoulder The patient was instructed on some range of motion exercises. She will do these on her own. She does not believe that she couldparticipate in a formal physical therapyprogram at this time. She was given a prescription for Mobicto use in place of the ibuprofen since she is experiencing some intolerability issues with the ibuprofen. She was also given a prescription for Medrol Dosepak and given an injection of Kenalog 40 mg IM today. She may try heat and analgesic cream. She was provided with a statement to give to her employer indicating that she would be able to carry out her work responsibilities. However, in the futureshe may need to be placed on restrictions Ordered: Office Visit Level 4 Est 63222 ADD (attention deficit disorder) Refill the Adderall as previously prescribed. 3 separate prescriptions provided to the patient to have filled when due. Ordered: Office Visit Level 4 Est 46336 Bipolar affective disorder Refill the Lexapro andlamotrigineas previously prescribed. She does have an upcoming appointment with Psychiatry to review her meds and discuss additionalmanagement Ordered: Office Visit Level 4 Est 87365
--- OUTSIDE RECORDS SUMMARY | 2018-12-14 22:02 | XMS REPORT | Referral Summary ---
Author Author [facility] Organization [facility] Address Unknown Phone Unavailable Care Team Providers Care World Travel Counselor Name Role Phone Ivana Mistry PCP Encounter VC Date(s): 10/12/17 - 10/12/17 [facility] [id number] [place] [id number] Encounter Diagnosis Affective bipolar disorder (Discharge Diagnosis) - 10/12/17 Attention deficit disorder (Discharge Diagnosis) - 10/12/17 Adult acne (Discharge Diagnosis) - 10/12/17 Acute upper respiratory infection (Discharge Diagnosis) - 10/12/17 Discharge Disposition: 01-Home or Self Care Attending Physician: Ivana Mistry MD Admitting Physician: Ivana Mistry MD Vital Signs Most recent to 1 oldest [Reference Range]: Peripheral Pulse 91 bpm Rate [60-100 bpm] (10/12/17 2:30 PM) Blood Pressure 110/62 mmHg [90-140/60-90 mmHg] (10/12/17 2:30 PM) SpO2 97 % (10/12/17 2:30 PM) Problem List Condition Effective Dates Status [...] Status: Ordered escitalopram 20 mg oral tablet 20 mg 1 tabs, Oral, Daily, # 90 tabs, 0 Refill(s) Start Date: 10/12/17 Status: Ordered folic acid Daily, 0 Refill(s) Start Date: 12/25/16 Status: Ordered Iron Chews 15 mg, Oral, Daily, 0 Refill(s) Start Date: 12/25/16 Status: Ordered lamoTRIgine 150 mg oral tablet 150 mg 1 tabs, Oral, Daily, # 90 tabs, 0 Refill(s) Start Date: 10/12/17 Status: Ordered meloxicam 15 mg oral tablet [...] Visit Note Author: Ivana Mistry MD Date: 10/12/17 Acute upper respiratory infection Daughter was diagnosed with influenza and the patient is exhibiting similar symptoms. She is within the windowof initiating Tamiflu but she cannot afford the medication at this time. Her symptoms are improving. Continue [id number] medications for symptomatic relief. Ordered: Office Visit Level 3 Est 95000 Adult acne A prescription for DifferinWas given to the patient to have filledwhen she can afford to pay for the medication. She will continue with the over-the- counter medicationsat this time Ordered: Office Visit Level 3 Est 08168 Affective bipolar disorder Continue current medical regimen. Refills provided. She believes that she is doing fairly well on this regimen. Reassess in 3 months. Ordered: Office Visit Level 3 Est 45635 Attention deficit disorder Refill the Adderall as previously prescribed. 3 separate prescriptions provided to the patient for this particular medication. She will follow-up in 3 months. Prescriptions will be due at that time. Ordered: Office Visit Level 3 Est 24479
--- OUTSIDE RECORDS SUMMARY | 2018-12-14 22:03 | XMS REPORT | Summary of Care ---
Author Author Elisa Decker Organization Unknown Address [address] [place] [place] [id number] Phone Unavailable Care Team Providers Care Railroad Brake Operator Name Role Phone Edwige Oates APRN Unavailable Unavailable Elisa Decker Unavailable Unavailable Ivana Mistry Unavailable Unavailable Unavailable Unavailable Functional Status Name Dates Details Functional status health issues are not documented Status: Name Dates Details Cognitive status health issues are not documented Status: Problems Name Dates Details Folliculitis (704.8, L73.9) Status: Active Depression (311, F32.9) Status: Active Medication withdrawal (292.0, F19.939) Status: Active Fatigue (780.79, R53.83) Status: Active Acute tonsillitis (463, J03.90) Status: Active Medications Name Dates Details Adderall 20 MG Oral Tablet TAKE 1 TABLET TWICE DAILY. Edwige Oates APRN * Start : 23-Oct-2016 Active LamoTRIgine ER 250 MG Oral Tablet Extended Release 24 Hour * Refills: 0 Edwige Oates APRN * Start : 23-Oct-2016 Active Lexapro 20 MG Oral Tablet TAKE 1 TABLET DAILY. * Refills: 0 * Start : 02-Jan-2017 Active Meloxicam 15 MG Oral Tablet TAKE 1 TABLET DAILY WITH FOOD. * Refills: 0 * Start : 02-Jan-2017 Active Fluticasone Propionate 50 MCG/ACT Nasal Suspension USE 1 TO 2 SPRAYS IN EACH NOSTRIL ONCE DAILY. * Quantity: 1 Refills: 3 Edwige Oates APRN * Start : 02-Jan-2017 Active 16 GM Bottle Azithromycin 500 MG Oral Tablet TAKE 1 TABLET DAILY UNTIL FINISHED. * Quantity: 3 Refills: 0 Elisa Decker * Start : 29-Nov-2017 Active Allergies and Adverse Reactions Name Dates Details Penicillins (Allergy) Status: Active Past Medical History Name Dates Details History of Anxiety (300.00, F41.9) Status: Resolved History of attention deficit disorder (V11.8, Z86.59) Status: Resolved Procedures Procedure Dates Details History of wisdom tooth extraction Completed History of appendectomy Completed History of section Completed History of endometrial ablation Completed Immunization Name Dates Details Immunizations not documented Social History Name Dates Details - Status: Name Dates Details Smoker. current status unknown Vital Signs Date Test Result Details [id number] BP Systolic 138 mm[Hg] Status: BP Diastolic 60 mm[Hg] Status: Height 64.5 in Status: Weight 194 lb Status: Body Mass Index Calculated 32.79 kg/m2 Status: Body Surface Area Calculated 1.94 m2 Status: Temperature 98.1 f Status: Heart Rate 102 /min Status: O2 SAT 98 % Status: Results Date Description Value Details Results not documented Plan of Care Name Dates Details Planned Observations Planned Goals not documented Interventions Provided Medication Changes* Azithromycin 500 MG Oral Tablet - Start Instructions Name Dates Details Instructions not documented Encounters Appointment; Edwige Oates A.P.R.N. Encounter Diagnosis: Problem not documented On: 23-Oct-2016 10:00 Appointment; Edwige Oates A.P.R.N. Encounter Diagnosis: Problem not documented On: 02-Jan-2017 9:20 Appointment; Cori Dexetr M.D. Encounter Diagnosis: Problem not documented On: 08-Mar-2017 10:54 Appointment; Elisa Decker APRN Encounter Diagnosis: Problem not documented On: 29-Nov-2017 16:09
--- OUTSIDE RECORDS SUMMARY | 2018-12-14 22:03 | XMS REPORT | Summary of Care ---
Author Author Edwige Oates APRN Organization Unknown Address [address] [place] [id number] Phone Unavailable Care Team Providers Care Target Man Name Role Phone Edwige Oates APRN Unavailable Unavailable Ivana Mistry Unavailable Unavailable Unavailable Unavailable Functional Status Name Dates Details Functional status health issues are not documented Status: Name Dates Details Cognitive status health issues are not documented Status: Problems Name Dates Details Folliculitis (704.8, L73.9) Status: Active Acute pharyngitis (462, J02.9) Status: Active Acute upper respiratory infection (465.9, J06.9) Status: Active Medications Name Dates Details Adderall 20 MG Oral Tablet TAKE 1 TABLET TID Edwige Oates APRN * Start 23-Oct-2016 Active LamoTRIgine ER 250 MG Oral Tablet Extended Release 24 Hour * Refills: 0 Edwige Oates APRN * Start 23-Oct-2016 Active Lexapro 20 MG Oral Tablet TAKE 1 TABLET DAILY. * Refills: 0 * Start 02-Jan-2017 Active Meloxicam 15 MG Oral Tablet TAKE 1 TABLET DAILY WITH FOOD. * Refills: 0 * Start 02-Jan-2017 Active Azithromycin 250 MG Oral Tablet TAKE 2 TABLETS ON DAY 1 THEN TAKE 1 TABLET A DAY FOR 4 DAYS. * Quantity: 1 Refills: 0 Edwige Oates APRN * Start 02-Jan-2017 Active 6 Tablet Disp Pack Fluticasone Propionate 50 MCG/ACT Nasal Suspension USE 1 TO 2 SPRAYS IN EACH NOSTRIL ONCE DAILY. * Quantity: 1 Refills: 3 Edwige Oates APRN * Start 02-Jan-2017 Active 16 GM Bottle Allergies and Adverse Reactions Name Dates Details Penicillins (Allergy) Status: Active Procedures Procedure Dates Details Procedures not documented Immunization Name Dates Details Immunizations not documented Social History Name Dates Details - Status: Name Dates Details Smoker. current status unknown Vital Signs Date Test Result Details 02-Jan-2017 09:31 BP Systolic 118 mm[Hg] Status: Comments: Location: ; Position: BP Diastolic 78 mm[Hg] Status: Comments: Location: ; Position: Temperature 98.1 f Status: Comments: Method: Heart Rate 91 /min Status: Comments: Location: ; Weight 192.5 lb Status: Physical Findings 99 Status: Comments: O2 Saturation Body Mass Index Calculated 32.53 kg/m2 Status: Body Surface Area Calculated 1.94 m2 Status: Results Date Description Value Details Results not documented Plan of Care Name Dates Details Planned Observations Planned Goals not documented Interventions Provided Medication Changes* Azithromycin 250 MG Oral Tablet - Start * Fluticasone Propionate 50 MCG/ACT Nasal Suspension - Start Instructions Name Dates Details Instructions not documented Encounters Appointment; Edwige Oates A.P.R.N. Encounter Diagnosis: Problem not documented On 23-Oct-2016 10:00 Appointment; [facility] Encounter Diagnosis: Problem not documented On 25-Nov-2015 16:15 Appointment; [facility] Encounter Diagnosis: Problem not documented On 25-Nov-2015 15:15
--- OUTSIDE RECORDS SUMMARY | 2018-12-14 22:03 | XMS REPORT ---
Author Author BETH SUN [facility] Address [address] [place] [address] Care Team Providers Care Sustainability Coordinator Name Role Phone BETH SUN Unavailable PROBLEMS Type Condition ICD9-CM Code [id number] Code Onset Dates Condition Status SNOMED Code Problem Moderate episode of recurrent major depressive disorder F33.1 Active 492456767 Problem Depressive disorder F32.9 Active 53876170 Problem Attention deficit hyperactivity disorder (ADHD), predominantly inattentive type F90.0 Active [id number] ALLERGIES No Information ENCOUNTERS Encounter Location Date Diagnosis [facility] [id number] [place] [phone] Jun, [facility] [id number] [place] [phone] Jun, Attention deficit hyperactivity disorder (ADHD), predominantly inattentive type F90.0 [facility] [id number] [place] [phone] Jun, [facility] [id number] [place] [phone] May, Encounter for insertion of intrauterine contraceptive device Z30.430 ; control Z30.9 ; Screening examination for sexually transmitted disease Z11.3 ; Depressive disorder F32.9 and Attention deficit hyperactivity disorder (ADHD), predominantly inattentive type F90.0 [facility] [id number] [place] [phone] May, Depressive disorder F32.9 [facility] [id number] [place] [address] May, Moderate episode of recurrent major depressive disorder F33.1 and Attention deficit hyperactivity disorder (ADHD), predominantly inattentive type F90.0 [facility] [address] [facility] [id number] [address] May, [facility] [address] [facility] [id number] [address] May, Attention deficit hyperactivity disorder (ADHD), predominantly inattentive type F90.0 ; Encounter for initial prescription of intrauterine contraceptive device (IUD) Z30.014 and Depressive disorder F32.9 IMMUNIZATIONS No Known Immunizations SOCIAL HISTORY Never Assessed REASON FOR VISIT Refill request PLAN OF CARE VITAL SIGNS MEDICATIONS Unknown Medications RESULTS No Results PROCEDURES No Known procedures INSTRUCTIONS MEDICATIONS ADMINISTERED No Known Medications MEDICAL (GENERAL) HISTORY Type Description Date Medical History Depression, unspecified depression type Medical History Carpal tunnel syndrome on both sides Medical History Attention deficit hyperactivity disorder (ADHD), unspecified ADHD type Medical History Anemia, unspecified type Medical History Neuropathy Medical History Endometriosis Surgical History carpal tunnel release- RT 02/2018 Surgical History ovary and fallopian tube removal - RT 01/2018 Surgical History section Surgical History wisdom teeth extraction Surgical History appendectomy Hospitalization History child Hospitalization History surgery
--- OUTSIDE RECORDS SUMMARY | 2018-12-14 22:03 | XMS REPORT ---
Author Author BETH SUN [facility] Address [address] [place] [address] Care Team Providers Care Oil Well Logger Name Role Phone BETH SUN Unavailable PROBLEMS Type Condition ICD9-CM Code [id number] Code Onset Dates Condition Status SNOMED Code Problem Moderate episode of recurrent major depressive disorder F33.1 Active 056719130 Problem Depressive disorder F32.9 Active 02017358 Problem Attention deficit hyperactivity disorder (ADHD), predominantly inattentive type F90.0 Active 15263998 ALLERGIES No Information ENCOUNTERS Encounter Location Date Diagnosis [facility] [id number] [place] [phone] Jul, Attention deficit hyperactivity disorder (ADHD), predominantly inattentive type F90.0 [facility] [id number] [place] [address] Jun, [facility] [id number] [place] [phone] Jun, Attention deficit hyperactivity disorder (ADHD), predominantly inattentive type F90.0 [facility] [id number] [place] [address] Jun, [facility] [id number] [place] [phone] May, Encounter for insertion of intrauterine contraceptive device Z30.430 ; control Z30.9 ; Screening examination for sexually transmitted disease Z11.3 ; Depressive disorder F32.9 and Attention deficit hyperactivity disorder (ADHD), predominantly inattentive type F90.0 [facility] [id number] [place] [address] May, Depressive disorder F32.9 [facility] [id number] [address] May, 2018 Moderate episode of recurrent major depressive disorder F33.1 and Attention deficit hyperactivity disorder (ADHD), predominantly inattentive type F90.0 [facility] [address] [facility] [id number] [address] May, 2018 [facility] [address] [facility] [id number] [address] May, 2018 Attention deficit hyperactivity disorder (ADHD), predominantly inattentive type F90.0 ; Encounter for initial prescription of intrauterine contraceptive device (IUD) Z30.014 and Depressive disorder F32.9 IMMUNIZATIONS No Known Immunizations SOCIAL HISTORY Never Assessed REASON FOR VISIT Controlled Refill 07/26 PLAN OF CARE VITAL SIGNS MEDICATIONS Medication Instructions Dosage Frequency Start Date End Date Duration Status Adderall 20 mg Orally Twice a day 1 tablet 12h 21 Jul, 2018 28 days Active RESULTS No Results PROCEDURES No Known procedures [...]
--- OUTSIDE RECORDS SUMMARY | 2018-12-14 22:03 | XMS REPORT ---
Author Author BETH SUN [facility] Address [address] [place] [address] Care Team Providers Care Leather Goods Ii Assembler Name Role Phone BETH SUN Unavailable PROBLEMS Type Condition ICD9-CM Code [id number] Code Onset Dates Condition Status SNOMED Code Problem Moderate episode of recurrent major depressive disorder F33.1 Active 756640050 Problem Depressive disorder F32.9 Active 35009529 Problem Attention deficit hyperactivity disorder (ADHD), predominantly inattentive type F90.0 Active 07395185 ALLERGIES No Information ENCOUNTERS Encounter Location Date Diagnosis [facility] [id number] [place] [phone] Jun, Attention deficit hyperactivity disorder (ADHD), predominantly inattentive type F90.0 [facility] [id number] [place] [address]180[address] Jun, [facility] [id number] [place] [address] 12545[phone] May, Encounter for insertion of intrauterine contraceptive device Z30.430 ; control Z30.9 ; Screening examination for sexually transmitted disease Z11.3 ; Depressive disorder F32.9 and Attention deficit hyperactivity disorder (ADHD), predominantly inattentive type F90.0 [facility] [id number] [place] [address] May, Depressive disorder F32.9 [facility] [id number] [place] [address] 24[address] May, Moderate episode of recurrent major depressive disorder F33.1 and Attention deficit hyperactivity disorder (ADHD), predominantly inattentive type F90.0 [facility] [id number] [place] [address] 7[phone] May, [facility] [address] [facility] [id number] [place] [address] May, 2018 Attention deficit hyperactivity disorder (ADHD), predominantly inattentive type F90.0 ; Encounter for initial prescription of intrauterine contraceptive device (IUD) Z30.014 and Depressive disorder F32.9 IMMUNIZATIONS No Known Immunizations SOCIAL HISTORY Never Assessed REASON FOR VISIT Requests return call PLAN OF CARE VITAL SIGNS MEDICATIONS Medication Instructions Dosage Frequency Start Date End Date Duration Status Adderall 20 mg Orally Twice a day 1 tablet 12h Jun, 28 days Active RESULTS No Results PROCEDURES [...]
--- OUTSIDE RECORDS SUMMARY | 2018-12-14 22:03 | XMS REPORT | Summary of Care ---
Author Author Isacc Chen, Cori Organization Unknown Address [address] [place], [place] [id number] Phone Unavailable Care Team Providers Care Entry Level Project Engineer Name Role Phone Edwige Oates APRN Unavailable Unavailable Cori Dexter M.D. Unavailable Unavailable Ivana Mistry Unavailable Unavailable Unavailable Unavailable Functional Status Name Dates Details Functional status health issues are not documented Status: Name Dates Details Cognitive status health issues are not documented Status: Problems Name Dates Details Folliculitis (704.8, L73.9) Status: Active Depression (311, F32.9) Status: Active Medication withdrawal (292.0, F19.939) Status: Active Fatigue (780.79, R53.83) Status: Active Medications Name Dates Details Adderall 20 MG Oral Tablet TAKE 1 TABLET TID Edwige Oates APRN * Start : 23-Oct-2016 [...] Start : 02-Jan-2017 Active 16 GM Bottle Allergies and [...] unknown Vital Signs Date Test Result Details [id number] BP Systolic 110 mm[Hg] Status: BP Diastolic 64 mm[Hg] Status: Weight 193 lb Status: Body Mass Index Calculated 32.62 kg/m2 Status: Body Surface Area Calculated 1.94 m2 Status: Temperature 98.2 f Status: O2 SAT 98 % Status: Heart Rate 79 /min Status: Results Date Description Value Details Results not documented Plan of Care Name Dates Details Planned Observations Planned Goals not documented Instructions Name Dates Details Instructions not documented Encounters Appointment; [facility] Encounter Diagnosis: Problem not documented On: 25-Nov-2015 15:15 Appointment; [facility] Encounter Diagnosis: Problem not documented On: 25-Nov-2015 16:15 Appointment; Edwige Oates A.P.R.N. Encounter Diagnosis: Problem not documented On: 23-Oct-2016 10:00 Appointment; Edwige Oates A.P.R.N. Encounter Diagnosis: Problem not documented On: 02-Jan-2017 9:20 Appointment; Cori Dexter M.D. Encounter Diagnosis: Problem not documented On: 08-Mar-2017 10:54
--- OUTSIDE RECORDS SUMMARY | 2018-12-14 22:03 | XMS REPORT | Summary of Care ---
Author Author Edwige Oates APRN Organization Unknown Address [address] [place], [place] [id number] Phone Unavailable Care Team Providers Care Machine Operator Replanter Name Role Phone Edwige Oates APRN Unavailable Unavailable Ivana Mistry Unavailable Unavailable Unavailable Unavailable Functional Status Name Dates Details Functional status health issues are not documented Status: Name Dates Details Cognitive status health issues are not documented Status: Problems Name Dates Details Folliculitis (704.8, L73.9) Status: Active Medications Name Dates Details Adderall 20 MG Oral Tablet TAKE 1 TABLET TID Edwige Oates APRN * Start 23-Oct-2016 Active Desvenlafaxine Succinate 50 MG Oral Tablet Extended Release 24 Hour * Refills: 0 Edwige Oates APRN * Start 23-Oct-2016 Active LamoTRIgine ER 250 MG Oral Tablet Extended Release 24 Hour * Refills: 0 Edwige Oates APRN * Start 23-Oct-2016 Active Sulfamethoxazole-Trimethoprim 800-160 MG Oral Tablet take 1 tab BID for 10 days * Quantity: 20 Refills: 0 Edwige Oates APRN * Start 23-Oct-2016 Active PredniSONE 20 MG Oral Tablet TAKE 1 TABLET DAILY. * Quantity: 5 Refills: 0 Edwige Oates APRN * Start 23-Oct-2016 End 28-Oct-2016 Active Allergies and Adverse Reactions Name Dates Details Penicillins (Allergy) Status: Active Procedures Procedure Dates Details Procedures not documented Immunization Name Dates Details Immunizations not documented Social History Name Dates Details - Status: Name Dates Details Smoker. current status unknown Vital Signs Date Test Result Details 23-Oct-2016 09:56 BP Systolic 110 mm[Hg] Status: Comments: Location: ; Position: BP Diastolic 78 mm[Hg] Status: Comments: Location: ; Position: Temperature 98.2 f Status: Comments: Method: Heart Rate 97 /min Status: Comments: Location: ; Height 64.5 in Status: Weight 188.5 lb Status: Physical Findings 99 Status: Comments: O2 Saturation Body Mass Index Calculated 31.86 kg/m2 Status: Body Surface Area Calculated 1.92 m2 Status: Results Date Description Value Details Results not documented Plan of Care Name Dates Details Planned Observations Planned Goals not documented Interventions Provided Medication Changes* PredniSONE 20 MG Oral Tablet - Start * Sulfamethoxazole-Trimethoprim 800-160 MG Oral Tablet - Start Instructions Name Dates Details Instructions not documented Encounters Appointment; [facility] Encounter Diagnosis: Problem not documented On 25-Nov-2015 16:15 Appointment; [facility] Encounter Diagnosis: Problem not documented On 25-Nov-2015 15:15
--- OUTSIDE RECORDS SUMMARY | 2018-12-14 22:04 | XMS REPORT | Continuity of Care Document ---
Author Author Lj Villanueva MA [facility] Address [address] [place] [address] Phone Unavailable Care Team Providers Care Insurance Processing Clerk Name Role Phone Fede Ivana GONZALEZ Unavailable Payers Payer name Insurance type Covered alliance party ID Authorization(s) Unknown Problems Condition Effective Dates (start - stop) Clinical Status Acute otitis media - Severe Conductive hearing loss in right ear - *Acute Otalgia of right ear - *Symptomatic Sinusitis, Acute - *Acute Bipolar affective disorder - *Chronic Endometriosis - *Resolved Physical exam, routine - *Routine Ear pain - *Acute VARICELLA UNCOMPLICATED - IRON DEFIC ANEMIA NOS - 311 - DEPRESSIVE DISORDER NEC - CONDUCT HEARING LOSS NOS - ASTHMA NOS - Family History Family Member Diagnosis Age At Onset Status Unknown Social History Social History Element Description Quantity Unknown Allergies, Adverse Reactions, Alerts Substance Reaction Severity Status PENICILLINS Rash Unknown Medications Medication Instructions Dosage Effective Dates (start - stop) Status CIPRODEX 0.3 %-0.1 % Ear Drops, Susp instill 5 drop by otic route 2 times every day for 7 days into affected ear(s) 0 - No Longer Active Sprintec (28) 0.25 mg-35 mcg tablet take 1 tablet by oral route every day 0 - Active Lamictal 150 mg tablet Take 1 tablet by mouth every day. - Active Prozac 40 mg capsule Take 1 tablet by mouth every day. - Active Lortab 5 mg-500 mg tablet take 1 tablet by oral route every 4 - 6 hours as needed for pain 0 - Active Immunizations Vaccine Date Status Comments Unknown Results Test Name Date and Time Measure Units Reference Range Abnormal Flag Comments Unknown Vital Signs Date / Time: Height Weight Pulse Rate Blood Pressure Temperature /13:28:00 63.50 in 220.00 lbs 97.7 F Procedures Procedure Date Unknown Encounters Encounter Location Date [facility] Patient Visit [address] Patient Visit [address] Patient Visit [address] Patient Visit [address] Patient Visit Conversion Advance Directives Directive Effective Date Unknown
--- OUTSIDE RECORDS SUMMARY | 2018-12-14 22:04 | XMS REPORT ---
Author Author MANUEL MOLINA Organization [facility] Address [address] [place] [address] Care Team Providers Care Social Work Lecturer Name Role Phone JACKSON, MOLINA Unavailable PROBLEMS Type Condition ICD9-CM Code [id number] Code Onset Dates Condition Status SNOMED Code Problem Moderate episode of recurrent major depressive disorder F33.1 Active 600830505 Problem Depressive disorder F32.9 Active 44840546 Problem Attention deficit hyperactivity disorder (ADHD), predominantly inattentive type F90.0 Active 74186335 ALLERGIES No Information ENCOUNTERS Encounter Location Date Diagnosis [id number] [place] [phone] Jun, [facility] [id number] [place] [address] 40180- [phone] May, Encounter for insertion of intrauterine contraceptive device Z30.430 ; control Z30.9 ; Screening examination for sexually transmitted disease Z11.3 ; Depressive disorder F32.9 and Attention deficit hyperactivity disorder (ADHD), predominantly inattentive type F90.0 [facility] [address] [place] [address] [phone]- [phone] May, Depressive disorder F32.9 [facility] [id number] [place] [address] 48785- [phone] May, Moderate episode of recurrent major depressive disorder F33.1 and Attention deficit hyperactivity disorder (ADHD), predominantly inattentive type F90.0 [facility] [id number] [place] [address] 94735- [address] May, [id number] [place] [phone][phone] May, Attention deficit hyperactivity disorder (ADHD), predominantly inattentive type F90.0 ; Encounter for initial prescription of intrauterine contraceptive device (IUD) Z30.014 and Depressive disorder F32.9 IMMUNIZATIONS No Known Immunizations SOCIAL HISTORY Never Assessed REASON FOR VISIT No Show Follow Up PLAN OF CARE VITAL SIGNS MEDICATIONS Unknown [...]
--- OUTSIDE RECORDS SUMMARY | 2018-12-14 22:04 | XMS REPORT ---
Author Author BETH SUN [facility] Address [address] [place] [address] Care Team Providers Care Management Trainer Name Role Phone BETH SUN Unavailable PROBLEMS Type Condition ICD9-CM Code [id number] Code Onset Dates Condition Status SNOMED Code Problem Moderate episode of recurrent major depressive disorder F33.1 Active 222223067 Problem Depressive disorder F32.9 Active 89181579 Problem Attention deficit hyperactivity disorder (ADHD), predominantly inattentive type F90.0 Active 89519692 ALLERGIES No Information ENCOUNTERS Encounter Location Date Diagnosis [id number] [place] [address] 56120[address] Jun, [facility] [id number] [place] [address] [phone] May, Encounter for insertion of intrauterine contraceptive device Z30.430 ; control Z30.9 ; Screening examination for sexually transmitted disease Z11.3 ; Depressive disorder F32.9 and Attention deficit hyperactivity disorder (ADHD), predominantly inattentive type F90.0 [address] [place] [address]12- [phone] May, Depressive disorder F32.9 [facility] [id number] [place] [address] [phone] May, Moderate episode of recurrent major depressive disorder F33.1 and Attention deficit hyperactivity disorder (ADHD), predominantly inattentive type F90.0 [facility] [id number] [place] [phone] May, [address] [place] [address] 76276- [phone] May, Attention deficit hyperactivity disorder (ADHD), predominantly inattentive type F90.0 ; Encounter for initial prescription of intrauterine contraceptive device (IUD) Z30.014 and Depressive disorder F32.9 IMMUNIZATIONS No Known Immunizations SOCIAL HISTORY Never Assessed REASON FOR VISIT PLAN OF CARE VITAL SIGNS MEDICATIONS Medication Instructions Dosage Frequency Start Date End Date Duration Status Lexapro 20 mg Orally Once a day 1 tablet 24h Active Adderall 20 MG Orally Twice a day 1 tablet 12h Active Meloxicam 15 MG Orally Once a day 1 tablet 24h 30 day(s) Active Lamotrigine 150 mg Orally Once a day 1 tablet 24h Active RESULTS No Results PROCEDURES No Known [...]
--- OUTSIDE RECORDS SUMMARY | 2018-12-14 22:04 | XMS REPORT | Continuity of Care Document ---
Author Author Zeke Mistry MD Ambulatory Address [address] [place] [address] [place] [address] Phone Care Team Providers Care Office Spec Name Role Phone Ivana Mistry PP Unavailable Payers Payer name Insurance type Covered democrat ID Authorization(s) Unknown Problems Condition Effective Dates (start - stop) Clinical Status Sinusitis, acute - *Acute Ear pain - *Acute Sinusitis, Acute - *Acute Ear pain - *Acute Bipolar affective disorder - *Chronic Endometriosis - *Resolved Physical exam, routine - *Routine VARICELLA UNCOMPLICATED - IRON DEFIC ANEMIA NOS - 311 - DEPRESSIVE DISORDER NEC - CONDUCT HEARING LOSS NOS - ASTHMA NOS - Acute otitis media - Severe Conductive hearing loss in right ear - *Acute Otalgia of right ear - *Symptomatic Family History Family Member Diagnosis Age At Onset Status Unknown Social History Social History Element Description Quantity Unknown Allergies, Adverse Reactions, Alerts Substance Reaction Severity Status PENICILLINS Rash Unknown Medications Medication Instructions Dosage Effective Dates (start - stop) Status doxycycline hyclate 100 mg capsule take 1 capsule (100MG) by oral route 2 times every day 100 MG - Active Sprintec (28) 0.25 mg-35 mcg tablet take 1 tablet by oral route every day 0 - Active Prozac 40 mg capsule Take 1 tablet by mouth every day. - Active Lortab 5 mg-500 mg tablet take 1 tablet by oral route every 4 - 6 hours as needed for pain 0 - Active Lamictal 150 mg tablet Take 1 tablet by mouth every day. - Active Immunizations Vaccine Date Status Comments Unknown Results Test Name Date and Time Measure Units Reference Range Abnormal Flag Comments Unknown Vital Signs Date / Time: Height Weight Pulse Rate Blood Pressure Temperature /14:35:00 63.50 in 218.00 lbs 78 /min 108/60 mm[Hg] 98.9 F Procedures Procedure Date Unknown Encounters Encounter Location Date Patient Visit [address] Patient Visit [address] Patient Visit [address] Patient Visit [address] Patient Visit [address] Patient Visit [address] Patient Visit Conversion Patient Visit [facility] Advance Directives Directive Effective Date Unknown
--- OUTSIDE RECORDS SUMMARY | 2018-12-14 22:04 | XMS REPORT | Referral Summary ---
Author Organization Unknown Address Unknown Phone Unavailable Care Team Providers Care Senior Reliability Engineer Name Role Phone Ivana Mistry PCP Encounter VC Date(s): 09/22/14 - 09/22/14 [address] [facility]en, [facility], Internal Medicine [address] [address] Discharge Diagnosis: Acute pain of right shoulder Discharge Disposition: Home or Self Care Attending Physician: Ivana Mistry MD Admitting Physician: Ivana Mistry MD Vital Signs Most recent to 1 oldest [Reference Range]: Peripheral Pulse 94 bpm Rate [60-100 bpm] (09/22/14 1:41 PM) Blood Pressure 122/64 mmHg [90-140/60-90 mmHg] (09/22/14 1:41 PM) Most recent to 1 oldest [Reference Range]: SpO2 100 % (09/22/14 1:41 PM) Problem List Condition Effective Dates Status Health Status Informant Anemia(Confirmed) Active Asthma(Confirmed) Active Bipolar affective Active disorder(Confirmed) Chicken Active pox(Confirmed) Depression(Confirmed Active ) Hearing Active loss(Confirmed) Obesity(Confirmed) Active patient Allergies, Adverse Reactions, Alerts Substance Reaction Severity Status penicillin Rash Active Medications LaMICtal 150 mg oral tablet 1 tabs, Oral, Daily, # 90 tabs, 1 Refill(s), Pharmacy: [facility], 1 tabs Oral Daily Start Date: 07/08/14 Status: Ordered Lexapro 10 mg oral tablet 1 tabs, Oral, Daily, # 30 tabs, 1 Refill(s), Pharmacy: [id number], 1 tabs Oral Daily Start Date: 08/12/14 Status: Ordered Mirena 52 mg intrauteral device 1 Each, IntraUteral, Once, # 1 Each, 0 Refill(s) Start Date: 01/29/14 Status: Ordered Hillside 7.5 mg-325 mg oral tablet 1 tabs, Oral, q6hr, as needed for pain, # 30 tabs, 0 Refill(s) Start Date: 09/22/14 Stop Date: 09/23/14 Status: Ordered Results No data available for [...] Visit Note Author: Ivana Mistry MD Date: 09/22/14 Assessment/Plan Acute pain of right shoulder Check x-ray. I suspect that she has a rotator cuff tendinitis. She was given a prescription for Medrol Dosepak to use as directed and I gave her prescription for Hillside to use for more severe pain. She will use thismedication primarily at night. She was also given a prescription for physical therapy Ordered: XR Shoulder Complete Right Orders: HYDROcodone-acetaminophen, 1 tabs, Oral, q6hr, as needed for pain, # 30 tabs, 0 Refill(s)
--- OUTSIDE RECORDS SUMMARY | 2018-12-14 22:04 | XMS REPORT ---
Author Author BETH SUN [facility] Address [address] [place] [address] Care Team Providers Care Radiologic Therapist Name Role Phone BETH SUN Unavailable PROBLEMS Type Condition ICD9-CM Code [id number] Code Onset Dates Condition Status SNOMED Code Problem Moderate episode of recurrent major depressive disorder F33.1 Active 544279819 Problem Depressive disorder F32.9 Active 02466247 Problem Attention deficit hyperactivity disorder (ADHD), predominantly inattentive type F90.0 Active 69684085 ALLERGIES Substance Reaction Event Type Date Status Penicillin G Benzathine rash Drug Allergy May, Active Erythromycin vomiting Drug Allergy May, Active ENCOUNTERS Encounter Location Date Diagnosis [facility] [address] [place] [phone] Jun, [facility] [id number] [place] [address] 10905- [address] May, Encounter for insertion of intrauterine contraceptive device Z30.430 ; control Z30.9 ; Screening examination for sexually transmitted disease Z11.3 ; Depressive disorder F32.9 and Attention deficit hyperactivity disorder (ADHD), predominantly inattentive type F90.0 [facility] [address] [address] May, Depressive disorder F32.9 [facility] [id number] [address] May, Moderate episode of recurrent major depressive disorder F33.1 and Attention deficit hyperactivity disorder (ADHD), predominantly inattentive type F90.0 [facility] [id number] [address] May, [facility] [id number] [place] [address] [phone] 10 May, 2018 Attention deficit hyperactivity disorder (ADHD), predominantly inattentive type F90.0 ; Encounter for initial prescription of intrauterine contraceptive device (IUD) Z30.014 and Depressive disorder F32.9 IMMUNIZATIONS No Known Immunizations SOCIAL HISTORY Never Assessed REASON FOR VISIT Mirena Insertion Antwon [facility] PLAN OF CARE Activity Details Follow Up 4-6 Weeks Reason:IUD check Pending Test GC/CHLAMYDIA (SWAB OR URINE)-RAPID VITAL SIGNS Height 65 in 2018-05-30 Weight 205.8 lbs 2018-05-30 Temperature 98.3 degrees Fahrenheit 2018-05-30 Heart Rate 100 bpm 2018-05-30 Respiratory Rate 20 2018-05-30 BMI 34.24 kg/m2 2018-05-30 Blood pressure systolic 126 mmHg 2018-05-30 Blood pressure diastolic 78 mmHg 2018-05-30 MEDICATIONS Medication Instructions Dosage Frequency Start Date End Date Duration Status Lexapro 20 mg Orally Once a day 1 tablet 24h Active Meloxicam 15 mg Orally Once a day 1 tablet 24h Aug, 30 day(s) Active Adderall 20 mg Orally Twice a day 1 tablet 12h 25 May, 2018 28 days Active Lamotrigine 150 MG Orally Once a day 1 tablet 24h 30 days Active RESULTS Name Result Date Reference Range TEST, URINE (IN HOUSE) 2018-05-30 RESULTS negative Lot # [id number] Control + Exp date 11/2019 PROCEDURES Procedure Date Ordered Result Body Site INSERT INTRAUTERINE DEVICE May 30, 2018 URINE TEST May 30, 2018 LAB NOT BILLED BY [facility] May 30, 2018 MIRENA LNG-RELEASING IUC SYS 52MG 5 YR DUR May 30, 2018 INSTRUCTIONS MEDICATIONS ADMINISTERED No Known Medications MEDICAL [...]
--- OUTSIDE RECORDS SUMMARY | 2018-12-14 22:04 | XMS REPORT ---
Author Author MANUEL MOLINA Organization [facility] Address [address] [place] [address] Care Team Providers Care Skein Winder Name Role Phone JACKSON, MOLINA Unavailable PROBLEMS Type Condition ICD9-CM Code [id number] Code Onset Dates Condition Status SNOMED Code Problem Moderate episode of recurrent major depressive disorder F33.1 Active 768765687 Problem Depressive disorder F32.9 Active 43198358 Problem Attention deficit hyperactivity disorder (ADHD), predominantly inattentive type F90.0 Active [id number] ALLERGIES No Information ENCOUNTERS Encounter Location Date Diagnosis [facility] [id number] [place] [phone] Jun, [facility] [id number] [place] [phone] May, Encounter for insertion of intrauterine contraceptive device Z30.430 ; control Z30.9 ; Screening examination for sexually transmitted disease Z11.3 ; Depressive disorder F32.9 and Attention deficit hyperactivity disorder (ADHD), predominantly inattentive type F90.0 [facility] [id number] [place] [phone] May, Depressive disorder F32.9 [facility] [id number] [place] [phone] May, Moderate episode of recurrent major depressive disorder F33.1 and Attention deficit hyperactivity disorder (ADHD), predominantly inattentive type F90.0 [facility] [id number] [place] [phone] May, [place] [id number] [place] [phone] May, Attention deficit hyperactivity disorder (ADHD), predominantly inattentive type F90.0 ; Encounter for initial prescription of intrauterine contraceptive device (IUD) Z30.014 and Depressive disorder F32.9 IMMUNIZATIONS No Known Immunizations SOCIAL HISTORY Never Assessed REASON FOR VISIT New patient PLAN OF CARE Activity Details Follow Up 2 Weeks Reason: VITAL SIGNS MEDICATIONS Medication Instructions Dosage Frequency Start Date End Date Duration Status Adderall 20 MG Orally Twice a day 1 tablet 12h Unknown Lamotrigine 150 MG Orally Once a day 1 tablet 24h Unknown Lexapro 20 MG Orally Once a day 1 tablet 24h Unknown RESULTS No Results PROCEDURES Procedure Date Ordered Result Body Site Psychotherapy, patient &/family, 30 minutes, established patient May 23, 2018 INSTRUCTIONS MEDICATIONS ADMINISTERED No Known Medications [...]
--- OUTSIDE RECORDS SUMMARY | 2018-12-14 22:04 | XMS REPORT | Continuity of Care Document ---
Author Author Christiano Brewster [facility] Address [address] [place] [id number] Phone Unavailable Care Team Providers Care Enrollment Counselor Name Role Phone Fede Ivana GONZALEZ Unavailable Payers Payer name Insurance type Covered republican ID Authorization(s) Unknown Problems Condition Effective Dates (start - stop) Clinical Status Ear pain - *Acute Sinusitis, Acute - *Acute Bipolar affective disorder [...] Dosage Effective Dates (start - stop) Status Lortab 5 mg-500 mg tablet take 1 tablet by oral route every 4 - 6 hours as needed for pain 0 - Active azithromycin 250 mg tablet take 2 tablet (500MG) by oral route every day for 1 day then 1 tablet (250 mg) by oral route once daily for 4 days 500 MG - No Longer Active Sprintec (28) 0.25 [...] Height Weight Pulse Rate Blood Pressure Temperature /09:00:00 63.50 in 225.00 lbs 86 /min 110/62 mm[Hg] 97.9 F Procedures Procedure Date Unknown Encounters Encounter Location Date Patient Visit [facility] Patient Visit [address] Patient Visit [address] Patient Visit [address] Patient Visit Conversion Patient Visit [facility] Advance Directives Directive Effective Date Unknown
--- OUTSIDE RECORDS SUMMARY | 2018-12-14 22:05 | XMS REPORT | Continuity of Care Document ---
Author Organization Unknown Address Unknown Allergies Active Description Code Type Severity Reaction Onset Reported/Identified Relationship to Patient Clinical Status Yes ANTIDEPRESSANT MEDICATION UNKNOWN MILD GI PROBLEMS - NAUSEA Yes CHLORHEXIDINE GLUCONATE SEVERE ITCHING Yes DOXYLAMINE SUCCINATE (BULK) MILD GI PROBLEMS - NAUSEA Yes ERYTHROMYCIN MILD GI PROBLEMS - VOMITI Yes PENICILLINS UNKNOWN DERMATOLOGICAL - REGINE Yes TAPE-CLEAR MILD OTHER Yes erythromycin base [id number] Drug Allergy Unknown N/A 02/19/2008 Yes Penicillins [id number] Drug Allergy Unknown N/A 02/19/2008 Yes penicillin NKMA N/A Rash 12/03/2013 Yes penicillin NKMA N/A Rash 12/03/2013 Yes doxycycline NKMA N/A N/A 03/31/2016 Yes doxycycline NKMA N/A N/A 03/31/2016 Yes erythromycin NKMA N/A [id number] 06/12/2016 Yes erythromycin NKMA N/A [id number] 06/12/2016 Yes Penicillins Penicillins Drug Allergy Moderate RASH 11/18/2017 Medications Medication Packaging Start Date Stop Date Route Dosage Sig levonorgestrel(Mirena 52 mg intrauteral device) 1 Each 01/29/2014 IntraUteral 52 mg 1 Each, IntraUteral, Once, 1 Each FLUoxetine(PROzac 40 mg oral capsule) 1 caps 01/29/2014 01/29/2014 Oral 40 mg 1 caps, Oral, Daily, 30 caps lamoTRIgine(LaMICtal 150 mg oral tablet) 1 tabs 01/29/2014 07/08/2014 Oral 150 mg 1 tabs, Oral, Daily azithromycin(azithromycin 250 mg oral tablet) 1 packets 01/29/2014 01/29/2014 Oral 1 packets, Oral, Once, as directed on package labeling, 6 tabs FLUoxetine(PROzac 40 mg oral capsule) 1 caps 01/29/2014 03/09/2014 Oral 40 mg 1 caps, Oral, Daily, 30 caps buPROPion(Wellbutrin SR 150 mg/12 hours oral tablet, extended release) 1 tabs 03/09/20142013 Oral 150 mg 1 tabs, Oral, BID , take daily for 3 days, then BID, 60 tabs ALPRAZolam(Xanax 0.5 mg oral tablet) 1 tabs 03/09/2014 03/10/2014 Oral 0.5 mg 1 tabs, Oral, Daily, 30 tabs, PRN: as needed for anxiety escitalopram(Lexapro 10 mg oral tablet) 1 tabs 05/05/2014 08/12/2014 Oral 10 mg 1 tabs, Oral, Daily, 30 tabs lamoTRIgine(LaMICtal 150 mg oral tablet) 1 tabs 07/08/2014 03/24/2015 Oral 150 mg 1 tabs, Oral, Daily, 90 tabs metroNIDAZOLE(metroNIDAZOLE 500 mg oral tablet) 1 tabs 08/12/2014 08/19/2014 Oral 500 mg 1 tabs, Oral, q12hr, 14 tabs HYDROcodone-acetaminophen([place] 7.5 mg-325 mg oral tablet) 1 tabs 09/22/2014 09/23/2014 Oral 1 tabs, Oral, q6hr, 30 tabs, PRN: as needed for pain methylPREDNISolone(Medrol Dosepak 4 mg oral tablet) 1 packets 09/22/2014 09/22/2014 Oral 1 packets, Oral, Once, as directed on package labeling, 21 tabs FLUoxetine(PROzac) 12/18/2014 08/10/2015 Oral 30 mg 30 mg, Oral, Daily, prescribed by Dr Nahum Chaudhary, 0 Refill(s) metroNIDAZOLE(metroNIDAZOLE 500 mg oral tablet) 1 tabs 12/18/2014 12/25/2014 Oral 500 mg 500 mg=1 tabs, Oral, q12hr, for 7 days, 14 tabs , 0 Refill(s) lamoTRIgine(lamoTRIgine 150 mg oral tablet) 03/24/2015 See Instructions, TAKE 1 TABLET BY MOUTH EVERY DAY, 90 tabs, 2 Refill(s) azithromycin(azithromycin 250 mg oral tablet) 04/23/2015 04/24/2015 See Instructions, as directed on package labeling, 6 tabs, 0 Refill(s) buPROPion(Wellbutrin SR 150 mg/12 hours oral tablet, extended release) 1 tabs 08/10/20152015 Oral 150 mg 150 mg=1 tabs, Oral, BID, 60 tabs, 0 Refill(s) azithromycin(azithromycin 250 mg oral tablet) 09/07/2015 09/08/2015 See Instructions, as directed on package labeling, 6 tabs, 0 Refill(s) dextroamphetamine-amphetamine(Adderall 30 mg oral tablet) 1 tabs 03/28/2016 12/25/2016 Oral 30 mg 30 mg=1 tabs, Oral, TID, 0 Refill(s) desvenlafaxine(Pristiq 50 mg oral tablet, extended release) 1 tabs 03/28/2016 12/25/2016 Oral 50 mg 50 mg=1 tabs, Oral, Daily, 30 tabs , 0 Refill(s) brexpiprazole(Rexulti) 201512/25/2016 Oral 1 mg 1 mg, Oral, Daily, 0 Refill(s) multivitamin(multivitamin) 201512/25/2016 Voided doxycycline(doxycycline hyclate 100 mg oral tablet) 1 tabs 03/28/2016 03/31/2016 Oral 100 mg 100 mg=1 tabs, Oral, BID, for 10 days, 20 tabs, 0 Refill(s) sulfamethoxazole-trimethoprim(sulfamethoxazole-trimethoprim 800 mg- 160 mg oral tablet) 1 tabs 06/12/2016 06/12/2016 Oral 1 tabs, Oral, BID, for 10 days, 20 tabs, 0 Refill(s) sulfamethoxazole-trimethoprim(sulfamethoxazole-trimethoprim 800 mg- 160 mg oral tablet) 1 tabs 06/12/2016 06/22/2016 Oral 1 tabs, Oral, BID, for 10 days, 20 tabs, 0 Refill(s) dexamethasone(dexamethasone 4 mg/mL injectable solution) 06/13/2016 06/13/2016 IntraMuscular 6 mg 6 mg, IntraMuscular, Once triamcinolone(triamcinolone acetonide 40 mg/mL injectable suspension) 06/13/2016 06/13/2016 IntraMuscular 60 mg 60 mg, IntraMuscular, Once Sulfamethoxazole-Trimethoprim 800-160 MG Oral Tablet Tablet 10/23/2016 Tablet 20 take 1 tab BID for 10 days PredniSONE 20 MG Oral Tablet Tablet 10/23/2016 10/28/2016 Tablet 5 TAKE 1 TABLET DAILY. Adderall 20 MG Oral Tablet Tablet 10/23/2016 Tablet TAKE 1 TABLET TID Desvenlafaxine Succinate ER 50 MG Oral Tablet Extended Release 24 Hour Tablet Extended Release 24 Hour 10/23/2016 01/02/2017 Tablet Extended Release 24 Hour LamoTRIgine ER 250 MG Oral Tablet Extended Release 24 Hour Tablet Extended Release 24 Hour 10/23/2016 Tablet Extended Release 24 Hour dextroamphetamine-amphetamine(dextroamphetamine-amphetamine 20 mg oral tablet) 1 tabs 12/25/2016 Oral 20 mg 20 mg=1 tabs, Oral, BID, 0 Refill(s) escitalopram(escitalopram 20 mg oral tablet) 12/25/2016 TK 1 T PO QD folic acid(folic acid) 2016 Daily, 0 Refill(s) chromium picolinate(chromium picolinate) 12/25/2016 Oral Oral, Daily, 0 Refill(s) biotin(biotin) 12/25/2016 Oral Oral, Daily, 0 Refill (s) Meloxicam 15 MG Oral Tablet Tablet 01/02/2017 Tablet TAKE 1 TABLET DAILY WITH FOOD. Azithromycin 250 MG Oral Tablet 6 Tablet Disp Pack 01/02/2017 6 Tablet Disp Pack 1 TAKE 2 TABLETS ON DAY 1 THEN TAKE 1 TABLET A DAY FOR 4 DAYS. Fluticasone Propionate 50 MCG/ACT Nasal Suspension 16 GM Bottle 01/02/2017 16 GM Bottle 1 USE 1 TO 2 SPRAYS IN EACH NOSTRIL ONCE DAILY. Lexapro 20 MG Oral Tablet Tablet Tablet TAKE 1 TABLET DAILY. dextroamphetamine-amphetamine(Adderall 20 mg oral tablet) 1 tabs 03/12/2017 04/10/2017 Oral 20 mg 20 mg=1 tabs, Oral, BID, 60 tabs, 0 Refill(s) methylPREDNISolone(Medrol Dosepak 4 mg oral tablet) 06/08/2017 06/09/2017 See Instructions, as directed on package labeling, 1 packets, 0 Refill(s) meloxicam(meloxicam 15 mg oral tablet) 1 tabs 06/08/2017 06/08/2017 Oral 15 mg 15 mg=1 tabs, Oral, Daily, 30 tabs, 0 Refill(s) dextroamphetamine-amphetamine(Adderall 20 mg oral tablet) 1 tabs 06/08/2017 06/08/2017 Oral 20 mg 20 mg=1 tabs, Oral, BID, 60 tabs, 0 Refill(s) dextroamphetamine-amphetamine(Adderall 20 mg oral tablet) 1 tabs 06/08/2017 06/08/2017 Oral 20 mg 20 mg=1 tabs, Oral, BID, 60 tabs, 0 Refill(s) dextroamphetamine-amphetamine(Adderall 20 mg oral tablet) 1 tabs 06/08/2017 Oral 20 mg 20 mg=1 tabs, Oral, BID, 60 tabs, 0 Refill(s) escitalopram(Lexapro 20 mg oral tablet) 1 tabs 06/08/2017 Oral 20 mg 20 mg=1 tabs, Oral, Daily, 30 tabs, 2 Refill(s) lamoTRIgine(lamoTRIgine 150 mg oral tablet) 1 tabs 06/08/2017 Oral 150 mg 150 mg=1 tabs, Oral, Daily, 30 tabs, 2 Refill(s) triamcinolone(triamcinolone acetonide 40 mg/mL injectable suspension) 06/08/2017 06/08/2017 IntraMuscular 40 mg 40 mg, IntraMuscular, Once sulfamethoxazole-trimethoprim(sulfamethoxazole-trimethoprim 800 mg- 160 mg oral tablet) 1 tabs 06/22/2017 07/02/2017 Oral 1 tabs, Oral, BID, for 10 days, 20 tabs, 0 Refill(s) meloxicam(meloxicam 15 mg oral tablet) 1 tabs 07/09/2017 10/12/2017 Oral 15 mg 15 mg=1 tabs, Oral, Daily, 90 tabs, 0 Refill(s) escitalopram(escitalopram 20 mg oral tablet) 10/08/2017 10/12/2017 See Instructions, TAKE ONE TABLET BY MOUTH EVERY DAY, 30 tabs escitalopram(escitalopram 20 mg oral tablet) 1 tabs 10/12/2017 Oral 20 mg 20 mg=1 tabs, Oral, Daily, 90 tabs, 0 Refill(s) lamoTRIgine(lamoTRIgine 150 mg oral tablet) 1 tabs 10/12/2017 Oral 150 mg 150 mg=1 tabs, Oral, Daily, 90 tabs, 0 Refill(s) dextroamphetamine-amphetamine(Adderall 20 mg oral tablet) 1 tabs 10/12/2017 10/12/2017 Oral 20 mg 20 mg=1 tabs, Oral, BID, 60 tabs, 0 Refill(s) dextroamphetamine-amphetamine(Adderall 20 mg oral tablet) 1 tabs 10/12/2017 Oral 20 mg 20 mg=1 tabs, Oral, BID, 60 tabs, 0 Refill(s) adapalene topical(Differin 0.1% topical cream) 1 brad 10/12/2017 Topical 1 brad, Topical, Bedtime (once a day), 15 g, 0 Refill(s) meloxicam(meloxicam 15 mg oral tablet) 1 tabs 10/12/2017 Oral 15 mg 15 mg=1 tabs, Oral, Daily, 90 tabs, 0 Refill(s) lamoTRIgine(lamoTRIgine 150 mg oral tablet) 11/01/2017 See Instructions, TAKE ONE TABLET BY MOUTH EVERY DAY, 30 tabs, 1 Refill(s ) escitalopram(escitalopram 20 mg oral tablet) 11/12/2017 See Instructions, TAKE ONE TABLET BY MOUTH EVERY DAY, 30 tabs, 1 Refill(s ) MELOXICAM 12/17/2017 1 LEXAPRO 12/17/2017 1 LAMOTRIGINE 12/17/2017 1 B-6 12/17/2017 1 B-12 12/17/2017 1 ADDERALL 12/17/2017 2 dextroamphetamine-amphetamine(Adderall 20 mg oral tablet) 1 tabs 01/08/2018 01/08/2018 Oral 20 mg 20 mg=1 tabs, Oral, BID, MAY FILL ON 01/10/18, 60 tabs, 0 Refill(s) dextroamphetamine-amphetamine(Adderall 20 mg oral tablet) 1 tabs 01/08/2018 Oral 20 mg 20 mg=1 tabs, Oral, BID, may fill on 01/08/18, 60 tabs, 0 Refill(s) meloxicam(meloxicam 15 mg oral tablet) 01/09/2018 See Instructions, TAKE ONE TABLET BY MOUTH DAILY, 90 tabs escitalopram(escitalopram 20 mg oral tablet) 01/15/2018 See Instructions, TAKE ONE TABLET BY MOUTH EVERY DAY, 30 tabs, 1 Refill(s ) dextroamphetamine-amphetamine(Adderall 20 mg oral tablet) 1 tabs 02/13/2018 02/13/2018 Oral 20 mg 20 mg=1 tabs, Oral, BID, 60 tabs, 0 Refill(s) dextroamphetamine-amphetamine(Adderall 20 mg oral tablet) 1 tabs 02/13/2018 02/13/2018 Oral 20 mg 20 mg=1 tabs, Oral, BID, 60 tabs, 0 Refill(s) dextroamphetamine-amphetamine(Adderall 20 mg oral tablet) 1 tabs 02/13/2018 Oral 20 mg 20 mg=1 tabs, Oral, BID, 60 tabs, 0 Refill(s) dextroamphetamine-amphetamine(Adderall 20 mg oral tablet) 1 tabs 02/13/2018 02/13/2018 Oral 20 mg 20 mg=1 tabs, Oral, BID, 60 tabs, 0 Refill(s) NORCO ORAL 02/15/2018 40 1 tab Q4H or 2 tabs Q6H escitalopram(escitalopram 20 mg oral tablet) 1 tabs 02/20/2018 02/21/2018 Oral 20 mg 20 mg=1 tabs, Oral, Daily, 90 tabs, 1 Refill(s) ondansetron(Zofran) 2 mL 201702/21/2018 IV Push 4 mg 4 mg=2 mL, IV Push, q6hr, PRN: Nausea oxycodone-acetaminophen(Percocet 5/325 oral tablet) 1 tabs 02/21/2018 02/21/2018 Oral 1 tabs, Oral, q4hr, PRN: Pain Moderate (4-6) clindamycin(clindamycin) 4 mL 02/2102/21/2018 IV Piggyback 600 mg 600 mg=4 mL, 108 mL/hr, IV Piggyback, PREOP escitalopram(Lexapro 20 mg oral tablet) 1 tabs 02/21/2018 Oral 20 mg 20 mg=1 tabs, Oral, Daily, 30 tabs, 0 Refill(s) Lactated Ringers Injection(Lactated Ringers Injection 1,000 mL) 1,000 mL 02/21/2018 02/21/2018 IV 10 mL/hr, IV midazolam(Versed) 2 mL 02/21/2018 02/21/2018 IV Push 2 mg 2 mg=2 mL, IV Push, Once fentaNYL(Sublimaze) 1 mL 201702/21/2018 IV Push 50 mcg 50 mcg=1 mL, IV Push, Once LACTATED RINGERS 1000CC IV BAG INJ ml 09/10/2018 09/17/2018 CONTINUOUSEVERY 0 Hour Problems Date Dx Coded Attending Type Code Diagnosis Diagnosed By 11/25/2015 [facility] Working Z41.1 Encounter for cosmetic surgery [facility] 03/06/2016 Ot 285.9 03/06/2016 Ot 646.83 03/06/2016 Ot 648.23 03/06/2016 Ot V72.83 03/06/2016 Ot V74.8 03/28/2016 Ivana Mistry Final H92.02 Otalgia, left ear 03/28/2016 Ivana Mistry Final J01.90 Acute sinusitis, unspecified 06/12/2016 Raven Iniguez Final H65.199 Other acute nonsuppurative otitis media, unspecified ear 06/12/2016 Raven Iniguez Final H69.82 Other specified disorders of Eustachian tube, left ear 06/12/2016 Raven Iniguez Final J06.9 Acute upper respiratory infection, unspecified 06/12/2016 Raven Iniguez Final R05 Cough 10/23/2016 Pavaner Edwige Working L73.9 Folliculitis [place], [place] 10/23/2016 Baringer, Edwige Working L73.9 Folliculitis [place]aringer, [place] 12/25/2016 Ivana Mistry Final G56.00 Carpal tunnel syndrome, unspecified upper limb 01/02/2017 Baringer Edwige Working J02.9 Acute pharyngitis [place]er, [place] 01/02/2017 Baringer, Edwige Working J06.9 Acute upper respiratory infection Baringer, [place] 01/02/2017 Baringer, Edwige Working J02.9 Acute pharyngitis, unspecified [place]er, [place] 01/02/2017 Baringer, Edwige Working J06.9 Acute upper respiratory infection, unspecified [place]er, [place] 03/06/2017 Ivana Mistry Final R23.3 Spontaneous ecchymoses 03/06/2017 Ivana Mistry Final R61 Generalized hyperhidrosis 03/12/2017 Ivana Mistry Final 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 06/08/2017 Ivana Mistry Final F31.9 Bipolar disorder, unspecified 06/08/2017 Ivana Mistry Final 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 06/08/2017 vIana Mistry Final M25.512 Pain in left shoulder 06/22/2017 Raven Iniguez Final H92.09 Otalgia, unspecified ear 06/22/2017 Raven Iniguez Final J20.9 Acute bronchitis, unspecified 10/12/2017 Ivana Mistry Final F31.9 Bipolar disorder, unspecified 10/12/2017 Ivana Mistry Final 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 10/12/2017 Ivana Mistry Final J06.9 Acute upper respiratory infection, unspecified 10/12/2017 Ivana Mistry Final L70.9 Acne, unspecified 12/03/2017 Ivana Mistry Final G56.03 Carpal tunnel syndrome, bilateral upper limbs 12/03/2017 Ivana Mistry Final R53.83 Other fatigue 01/08/2018 Raven Iniguez Final 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 02/13/2018 Ivana Mistry Final F32.1 Major depressive disorder, single episode, moderate 02/13/2018 Ivana Mistry Final 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 02/13/2018 Ivana Mistry Final Z00.00 Encounter for general adult medical examination without abnormal findings 02/25/2018 Luh,, Ricky Final E66.9 Obesity, unspecified 02/25/2018 Braman,, Ricky Final F17.210 Nicotine dependence, cigarettes, uncomplicated 02/25/2018 Luh,, Ricky Final F31.9 Bipolar disorder, unspecified 02/25/2018 Luh,, Ricky Reason G56.01 Carpal tunnel syndrome, right upper limb 02/25/2018 Braman,, Ricky Final M19.90 Unspecified osteoarthritis, unspecified site 02/25/2018 Braman,, Ricky Final Z68.33 Body mass index (BMI) 33.0-33.9, adult 06/04/2018 JOSE RAMON MAYORGA W 787.91 DIARRHEA 06/04/2018 JOSE RAMON MAYORGA A 789.03 ABDOMINAL PAIN, RIGHT LOWER QUADRANT 06/04/2018 JOSE RAMON MAYORGA A R10.31 RIGHT LOWER QUADRANT PAIN 06/04/2018 JOSE RAMON MAYORGA W R19.7 DIARRHEA, UNSPECIFIED 06/04/2018 JOSE RAMON MAYORGA W V77.91 SCREENING FOR LIPOID DISORDERS 06/04/2018 JOSE RAMON MAYORGA W Z13.220 ENCOUNTER FOR SCREENING FOR LIPOID DISORDERS 06/04/2018 JOSE RAMON MAYORGA W 787.91 DIARRHEA 06/04/2018 JOSE RAMON MAYORGA A 789.03 ABDOMINAL PAIN, RIGHT LOWER QUADRANT 06/04/2018 JOSE RAMON MAYORGA A R10.31 RIGHT LOWER QUADRANT PAIN 06/04/2018 JOSE RAMON MAYORGA W R19.7 DIARRHEA, UNSPECIFIED 06/04/2018 JOSE RAMON MAYORGA W V77.91 SCREENING FOR LIPOID DISORDERS 06/04/2018 JOSE RAMON MAYORGA W Z13.220 ENCOUNTER FOR SCREENING FOR LIPOID DISORDERS 06/04/2018 JOSE RAMON MAYORGA W 787.91 DIARRHEA 06/04/2018 JOSE RAMON MAYORGA A 789.03 ABDOMINAL PAIN, RIGHT LOWER QUADRANT 06/04/2018 JOSE RAMON MAYORGA A R10.31 RIGHT LOWER QUADRANT PAIN 06/04/2018 JOSE RAMON MAYORGA W R19.7 DIARRHEA, UNSPECIFIED 06/04/2018 JOSE RAMON MAYORGA V77.91 SCREENING FOR LIPOID DISORDERS 06/04/2018 JOSE RAMON MAYORGA W Z13.220 ENCOUNTER FOR SCREENING FOR LIPOID DISORDERS 06/06/2018 Ot 285.9 06/06/2018 Ot 646.83 06/06/2018 Ot 648.23 06/06/2018 Ot V72.83 06/06/2018 Ot V74.8 Procedures Code Description Performed By Performed On [id number] Peel, [facility], [facility] 11/25/2015 12787 Office or other outpatient visit for the evaluation and management of an established patient, which requires at least 2 of these 3 emmanuel components: An expanded problem focused history; An expanded prob 03/28/2016 10651 Therapeutic, prophylactic, or diagnostic injection (specify substance or drug); subcutaneous or intramuscular 06/12/2016 81995 Office or other outpatient visit for the evaluation and management of an established patient, which requires at least 2 of these 3 emmanuel components: An expanded problem focused history; An expanded prob 06/12/2016 J3301 TRIAMCINOLONE ACET INJ N 06/12/2016 80520 Collection of venous blood by venipuncture 12/25/2016 80242 General health panel This panel must include the following: Comprehensive metabolic panel (48997) Blood count, complete (CBC), automated and automated differential WBC count (90856 or 11254 and 71786) 12/25/2016 60054 Comprehensive metabolic panel This panel must include the following: Albumin (32817) Bilirubin, total ( 37594) Calcium, total (29014) Carbon dioxide (bicarbonate) (94886) Chloride ( 68941) Creatinine (8 12/25/2016 45141 Thyroid stimulating hormone (TSH) 12/25/2016 88395 Blood count; complete (CBC) , automated (Hgb, Hct, RBC, WBC and platelet count) and automated differential WBC count 12/25/2016 07678 Office or other outpatient visit for the evaluation and management of an established patient, which requires at least 2 of these 3 emmanuel components: A detailed history; A detailed examination; Medical d 12/25/2016 62698 Therapeutic Injection Edwige Oates 01/03/2017 J0696 Rocephin 250mg/unit [id number] Edwige Oates 01/03/2017 23299 Office or other outpatient visit for the evaluation and management of an established patient, which requires at least 2 of these 3 emmanuel components: An expanded problem focused history; An expanded prob 03/12/2017 27019 Therapeutic, prophylactic, or diagnostic injection (specify substance or drug); subcutaneous or intramuscular 06/08/2017 20523 Office or other outpatient visit for the evaluation and management of an established patient, which requires at least 2 of these 3 emmanuel components: A detailed history; A detailed examination; Medical d 06/08/2017 J3301 TRIAMCINOLONE ACET INJ N 06/08/2017 44660 Office or other outpatient visit for the evaluation and management of an established patient, which requires at least 2 of these 3 emmanuel components: An expanded problem focused history; An expanded prob 10/12/2017 76048 Office or other outpatient visit for the evaluation and management of an established patient, which requires at least 2 of these 3 emmanuel components: An expanded problem focused history; An expanded prob 12/03/2017 26440 Office or other outpatient visit for the evaluation and management of an established patient, which requires at least 2 of these 3 emmanuel components: A detailed history; A detailed examination; Medical d 12/03/2017 86208 Office or other outpatient visit for the evaluation and management of an established patient, which requires at least 2 of these 3 emmanuel components: An expanded problem focused history; An expanded prob 01/08/2018 19905 Periodic comprehensive preventive medicine reevaluation and management of an individual including an age and gender appropriate history, examination, counseling/anticipatory guidance/risk factor reduc 02/13/2018 22640 Neuroplasty and/or transposition; median nerve at carpal tunnel.. 02/21/2018 Results Test Result Range CBC With Platelet and Differential - 12/25/16 14:05 Absolute Basophils 0.01 10*3/uL 0.00-0.20 Absolute Eosinophils 0.09 10*3/uL 0.00-0.50 Absolute Lymphocytes 1.55 10*3/uL 0.80-3.30 Absolute Monocytes 0.49 10*3/uL 0.30-1.00 Absolute Neutrophils 3.23 10*3/uL 1.90-7.00 Basophils 0 % 0-2 Eosinophils 2 % 0-4 HCT 42.3 % 37.0-47.0 HGB 13.4 g/dL 12.0-16.0 Immature Granulocytes 0.4 % 0.0-1.0 Lymphocytes 29 % 20-46 MCH 25.7 pg 27.0-32.0 MCHC 31.7 g/dL 32.0-36.0 MCV 81.0 fL 82.0-99.0 Monocytes 9 % 4-11 MPV 10.0 fL 8.8-14.8 Neutrophils 60 % 51-75 Platelet Count 301 K/uL 150-400 RBC 5.22 10*6/uL 4.00-5.20 RDW 13.4 % 11.5-14.5 WBC 5.4 K/uL 4.8-10.8 Comprehensive Metabolic Panel (CMP) - 12/25/16 14:05 Albumin 4.3 g/dL 3.5-5.0 Alkaline Phosphatase 50 U/L 40-150 ALT (SGPT) 22 U/L 0-55 Anion Gap 7 mEq/L 3-20 AST (SGOT) 18 U/L 5-34 Bilirubin Total 0.3 mg/dL 0.2-1.2 BUN 12 mg/dL 7-19 Calcium 9.7 mg/dL 8.4-10.2 Chloride 102 mEq/L 99-111 CO2 31 mEq/L 22-31 Creatinine 0.80 mg/dL 0.57-1.11 Globulin 2.5 g/dL 1.8-4.0 Glucose 71 mg/dL 70-99 Potassium 4.2 mEq/L 3.5-5.2 Protein 6.8 g/dL 6.1-7.7 Sodium 140 mEq/L 135-144 eGFR - 12/25/16 14:05 eGFR >60 mL/min >60 TSH with Reflex Free T4 - 12/25/16 14:05 TSH with Reflex Free T4 1.88 uIU/mL 0.35-4.94 [place] - 11/18/17 21:00 Microbiology GRAM STAIN - CHLAMYDIA DNA BY PCR - 11/18/17 21:00 Microbiology CHLAMYDIA DNA BY PCR - 11/18/17 21:00 Microbiology URINALYSIS, ROUTINE - 11/18/17 21:00 UA LEUKOCYTE ESTERASE DIPSTICK TRACE NEGATIVE UA NITRITE DIPSTICK NEGATIVE NEGATIVE UA PROTEIN DIPSTICK NEGATIVE NEGATIVE UA GLUCOSE DIPSTICK NEGATIVE NEGATIVE UA KETONE DIPSTICK NEGATIVE NEGATIVE UA UROBILINOGEN DIPSTICK NORMAL NORMAL UA BILIRUBIN DIPSTICK NEGATIVE NEGATIVE UA BLOOD DIPSTICK NEGATIVE NEGATIVE UA SPECIFIC GRAVITY 1.010 1.015-1.025 UR PH 8.0 5.0-7.0 UA MICROSCOPIC - 11/18/17 21:00 UA AMORPHOUS SEDIMENT 4+ UA BACTERIA 2+ NEGATIVE UA EPITHELIAL CELLS 2+ epi/hpf 0 - 1+ UA RBC 0-3 rbc/hpf 0 - 3 UA VOLUME FOR EXAM 12.0 mL (12mL STD) UA WBC 0-1 wbc/hpf 0 - 5 UR TEST - 11/18/17 21:00 UR TEST NEGATIVE NEGATIVE RAPID PLASMA REAGIN - 11/18/17 21:05 RAPID PLASMA REAGIN NONREACTIVE NONREACTIVE HIV - 11/18/17 21:05 AB HIV 1 2 NEGATIVE NEGATIVE HIV 1 P24 AG NEGATIVE NEGATIVE CBC With Platelet and Differential - 12/03/17 16:20 Absolute Basophils 0.02 10*3/uL 0.00-0.20 Absolute Eosinophils 0.15 10*3/uL 0.00-0.50 Absolute Lymphocytes 2.30 10*3/uL 0.80-3.30 Absolute Monocytes 0.51 10*3/uL 0.30-1.00 Absolute Neutrophils 2.99 10*3/uL 1.90-7.00 Basophils 0 % 0-2 Eosinophils 3 % 0-4 HCT 43.4 % 37.0-47.0 HGB 13.3 g/dL 12.0-16.0 Immature Granulocytes 0.3 % 0.0-1.0 Lymphocytes 38 % 20-46 MCH 25.3 pg 27.0-32.0 MCHC 30.6 g/dL 32.0-36.0 MCV 82.7 fL 82.0-99.0 Monocytes 9 % 4-11 MPV 9.7 fL 8.8-14.8 Neutrophils 50 % 51-75 Nucleated RBC Automated 0.0 /100 WBC Platelet Count 370 K/uL 150-400 RBC 5.25 10*6/uL 4.00-5.20 RDW 13.3 % 11.5-14.5 WBC 6.0 K/uL 4.8-10.8 TSH with Reflex Free T4 - 12/03/17 16:20 TSH with Reflex Free T4 2.60 uIU/mL 0.35-4.94 Screen, Urine NPT - 02/21/18 09:26 Screen, Urine NPT Negative NA Glucose NPT - 02/21/18 09:39 Glucose NPT 94 mg/dL 70-100 GC/CHLAMYDIA (SWAB OR URINE)-RAPID - 05/30/18 11:08 CHLAMYDIA TRACHOMATIS RNA, TMA NOT DETECTED NOT DETECTED NEISSERIA GONORRHOEAE RNA, TMA NOT DETECTED NOT DETECTED COMMENT NRG CBC with Auto Diff - 06/04/18 11:45 Baso% 0.40 % 0.00-2.50 Eos 0.2 K/uL 0.0-0.7 Eos% 1.8 % 0.0-7.0 Hct 43.3 % 36.0-46.0 Hgb 13.3 g/dL 13.0-15.0 Lym 1.55 K/uL 0.60-3.40 Lym% 15.1 % 10.0-50.0 MCH 26.4 pg 27.0-31.0 MCHC 30.7 g/dL 32.0-36.0 MCV 85.9 fL 80.0-97.0 [place]% 6.0 % 0.0-12.0 MPV 10.6 fL 7.4-10.0 Jessee% 76.7 % 37.0-80.0 Plt 323 K/uL 150-400 RBC 5.04 M/uL 3.60-5.00 RDW 14.3 % 11.6-14.8 WBC 10.26 K/uL 5.00-10.00 [place] 7.87 K/uL 2.00-6.90 [place] 0.6 K/uL 0.0-0.9 Baso 0.0 K/uL 0.0-0.2 Protime - 09/04/18 13:52 INR 1.0 1.0-4.0 Protime 11.3 Sec 9.9-12.8 Test-Serum - 09/10/18 07:56 Preg Test-S Negative Negative Surgical Pathology - 09/10/18 11:10 Surg Path Sent to [facility] Pathology Encounters ACCT No. Visit Date/Time Discharge Status Pt. Type Provider Facility Loc./Unit Complaint [id number] 10/01/2013 14:33:00 10/01/2013 23:59:59 [facility] Outpatient [id number] 07/08/2013 13:27:00 07/08/2013 23:59:59 [facility] Outpatient [id number] 07/02/2013 08:58:00 07/02/2013 23:59:59 [facility] Outpatient [id number] 02/13/2018 07:29:00 02/13/2018 23:59:00 DIS Outpatient Ivana Mistry Via [facility] W21 IM cpe fasting [id number] 01/08/2018 10:13:00 01/08/2018 23:59:00 DIS Outpatient Raven Iniguez Via [facility] W21 IM [place] PT NEEDS RX FOR ADDERALL [id number] 12/03/2017 15:38:00 12/03/2017 23:59:00 DIS Outpatient Ivana Mistry Via [facility] W21 IM BILATERAL WRIST PAIN [id number] 10/12/2017 14:24:00 10/12/2017 23:59:00 DIS Outpatient FedeIvana Zeke [address] [address] IM DEPRESSION MED CHECK [id number] 06/22/2017 11:20:00 06/22/2017 23:59:00 DIS Outpatient Raven Iniguez [address] [id number] IM COUGHNG EAR PAIN [id number] 06/08/2017 15:21:00 06/08/2017 23:59:00 DIS Outpatient Fede Ivana L [address] [address] IM DEPRESSION AND ADHD MED CHECK. FOLLOW UP ROTATOR CUFF TENDON [id number] 03/12/2017 15:47:00 03/12/2017 23:59:00 DIS Outpatient Fede Ivana L [address] [address] IM CRISTELA MEDS AND NEEDS REFILLS [id number] 12/25/2016 13:27:00 12/25/2016 23:59:00 DIS Outpatient Ivana Mistry [address] [address] IM Bruising all over, carpal tunnel , dizziness x weeks [id number] 06/12/2016 09:54:00 06/12/2016 23:59:00 DIS Outpatient Raven Iniguez [address] [address] IM CONGESTION EAR CLOGGED [id number] 03/28/2016 11:24:00 03/28/2016 23:59:00 DIS Outpatient Fede Ivana L [address] [id number] IM TCPA SORE THROAT FEVER DRAINAGE ZIMMERMAN SINCE LAST SUNDAY [id number] 09/07/2015 15:43:00 09/07/2015 23:59:00 DIS Outpatient Fede Ivana Zeke [address] [address] IM SINUS INFECTION [id number] 08/10/2015 14:39:00 08/10/2015 23:59:59 CLS Outpatient Fede Ivana Zeke [address] [id number] IM RCK DEPRESSION [id number] 04/23/2015 14:23:00 04/23/2015 23:59:00 DIS Outpatient Ivana Mistry [address],WHITE SPOTS LAB FIRST [id number] 03/02/2015 15:03:00 03/02/2015 23:59:00 DIS Outpatient Ivana Mistry [address] [id number] IM POSS SLEEP APNEA [id number] 08/31/2014 15:02:00 08/31/2014 23:59:00 DIS Outpatient Ivana Mistry [address] [id number] IM RCK DEPRESSION MED [id number] 08/12/2014 10:57:00 08/12/2014 23:59:00 DIS Outpatient Ivana Mistry [address] [address] IM POSS UTI [id number] 02/21/2018 05:17:51 Document Registration [id number] 02/14/2018 05:18:33 Document Registration [id number] 01/16/2018 07:51:31 Document Registration [id number] 01/10/2018 05:17:42 Document Registration [id number] 01/09/2018 05:17:10 Document Registration [id number] 11/13/2017 05:18:26 Document Registration [id number] 11/02/2017 05:17:54 Document Registration [id number] 10/13/2017 05:17:22 Document Registration [id number] 10/09/2017 05:17:13 Document Registration [id number] 07/10/2017 05:16:44 Document Registration [id number] 06/23/2017 05:16:16 Document Registration [id number] 06/09/2017 05:17:04 Document Registration [id number] 06/09/2017 05:17:03 Document Registration [id number] 03/13/2017 05:16:52 Document Registration [id number] 12/18/2014 15:01:00 Document Registration [id number] 09/22/2014 13:36:00 Document Registration [id number] 12/17/2017 09:05:23 12/17/2017 09:05:23 DIS Outpatient [id number] 10/31/2018 10:40:00 10/31/2018 23:59:59 CLS Outpatient B[facility] [id number] 05/30/2018 09:00:00 Document Registration [id number] 02/26/2017 20:54:50 ACT Outpatient [place]Ed[place] palm [facility] 74 [id number] 12/31/2016 22:00:58 ACT Outpatient Edwige Oates [facility] 74 [id number] 12/31/2016 02:01:44 Document Registration [id number] 11/26/2015 17:22:45 ACT Outpatient [facility], [facility] 1 [id number] 11/26/2015 17:22:25 ACT Outpatient [facility], [facility] 1 2106 [id number] 12/14/2018 21:57:00 ACT Emergency SD MITCHELL APRN [facility] ER MIGRAINE,EAR INFECTION,NAUSEA [id number] 02/18/2008 14:01:00 Document Registration [id number] 09/10/2018 07:21:00 Document Registration [id number] 09/04/2018 12:57:00 09/04/2018 23:59:00 DIS Outpatient SunithaBeckie [id number] 06/04/2018 13:04:00 06/04/2018 23:59:00 DIS Outpatient JOSE RAMON MAYORGA [id number] 09/06/2018 16:20:29 Document Registration [id number] 09/04/2018 11:09:39 Document Registration [id number] 02/21/2018 09:07:00 02/21/2018 14:30:00 DIS Out[facility]u [facility] right carpal tunnel syndrome // right carpal tunnel release [id number] 02/22/2018 05:18:01 Document Registration [id number] 12/26/2016 05:16:13 Document Registration [id number] 06/14/2016 05:17:43 Document Registration [id number] 06/13/2016 05:18:22 Document Registration [id number] 03/29/2016 05:16:35 Document Registration [id number] 09/08/2015 05:17:17 Document Registration [id number] 08/11/2015 05:16:50 Document Registration [id number] 05/26/2015 13:51:08 Document Registration [id number] 05/26/2015 13:27:50 Document Registration [id number] 05/26/2015 12:21:50 Document Registration [id number] 05/26/2015 12:15:06 Document Registration [id number] 05/26/2015 11:15:37 Document Registration [id number] 05/26/2015 10:55:41 Document Registration [id number] 05/26/2015 10:50:01 Document Registration [id number] 05/26/2015 10:32:12 Document Registration [id number] 05/26/2015 09:58:36 Document Registration [id number] 05/26/2015 09:27:34 Document Registration [id number] 05/26/2015 09:04:09 Document Registration [id number] 11/18/2017 20:27:00 11/18/2017 21:42:00 DIS Emergency C[facility] [place] [id number] 07/03/2014 19:31:00 07/03/2014 20:54:00 DIS Emergency Lucy HERNANDEZ, [facility] W[place]ID
--- NOTE | 2018-12-14 22:09 | ED EENT ---
History of Present Illness General Chief Complaint: Ear Problems Stated Complaint: MIGRAINE,EAR INFECTION,NAUSEA Source: patient Exam Limitations: no limitations History of Present Illness Date Seen by Provider: December 14, 2018 Time Seen by Provider: 22:06 Initial Comments To ER with a right-sided migraine. This been ongoing for most of the day today. She has a history of migraines that were severe but they seemed to resolve with her last . This will recur today and she attributes it to a right ear infection she's been dealing with. She was given steroids and an antibiotic ( unknown which one) that she took twice a day as well as some eardrops. That failed to improve her symptoms. She was then given a prescription for Bactrim for the earache last week but has not yet started it. No fevers. Nausea but no vomiting. No visual changes. Timing/Duration: gradual Severity: moderate Prearrival Treatment: over the counter meds Associated Symptoms: facial pain/swelling (pain but no swelling) Allergies and Home Medications Allergies Coded Allergies: Erythromycin Base (Verified Allergy, Unknown, 02/19/08) Penicillins (Verified Allergy, Unknown, 02/19/08) Patient Home Medication List Home Medication List Reviewed: Yes Review of Systems Review of Systems Constitutional: see HPI Eyes: No Symptoms Reported Ears: No Symptoms Reported Nose: no symptoms reported Mouth: no symptoms reported Throat: no symptoms reported Respiratory: no symptoms reported Cardiovascular: no symptoms reported Gastrointestinal: nausea; No vomiting Musculoskeletal: no symptoms reported Neurological: See HPI, Headache Hematologic/Lymphatic: No Symptoms Reported Immunological/Allergic: no symptoms reported Past Oswmrge-Vdqlnw-Zchncm Hx Patient Social History Recent Foreign Travel: No Contact w/Someone Who Travel: No Physical Exam Height, Weight, BMI Height: '" Weight: lbs. oz. kg; BMI Method: General Appearance: WD/WN, no apparent distress Eyes: bilateral eye normal inspection, bilateral eye PERRL, bilateral eye EOMI Ears: bilateral ear auricle normal, bilateral ear canal normal, bilateral ear TM normal, bilateral ear other (there is no erythema of the right tympanic membrane but there is what appears to be a serous otitis behind the tympanic membrane. There is no erythema, swelling or other lesions seen in the ear canal. Tenderness to palpation over the right mastoid process but without erythema or swelling.) Mouth/Throat: normal mouth inspection, pharynx normal Neck: non-tender, full range of motion, lymphadenopathy (R), lymphadenopathy (L ) Respiratory: normal breath sounds, no respiratory distress, no accessory muscle use Neurologic/Psychiatric: alert, normal mood/affect, oriented x 3 Departure Impression Primary Impression: Headache Qualified Codes: R51 - Headache Disposition: 01 HOME, SELF-CARE Condition: Stable Departure-Patient Inst. Decision time for Depature: 22:09 Referrals: JOSE RAMON MAYORGA MD (PCP/Family) Primary Care Physician Patient Instructions: Headache, Adult Add. Discharge Instructions: 1. Return to ER for any concerns 2. Follow-up with your doctor next week 3. All discharge instructions reviewed with patient and/or family. Voiced understanding. SD MITCHELL APRN December 14, 2018 22:09
[2018-12-14] MEDS ORDERED: PROCHLORPERAZINE 10 MG/2ML INJ (COMPAZINE) IM ONE (22:15)
[2018-12-14] MEDS ORDERED: KETOROLAC 60 MG/2 ML VIAL IM ONE (22:15)
[2018-12-14] MEDS ORDERED: diphenhydrAMINE 50 MG/ML INJ (BENADRYL) IM ONE (22:15)
[2018-12-14 22:24] VITALS: BP 135/65
== END 2018-12-14 22:24 | disposition home or self-care (01) ==
LOC: EDUNIT# 21:54 → ER 21:57
DX: R51 Headache (principal); Z86.69 Personal history of other diseases of the nervous system and sense organs; Z91.041 Radiographic dye allergy status; Z88.0 Allergy status to penicillin
CPT/HCPCS: 96372; 99284

== ENCOUNTER → 2019-01-06 | Outpatient (CLI) | payer MEDICAID ==
--- NOTE | 2019-01-06 18:29 | Diagnostic Imaging Report ---
PROCEDURE: US Non-OB pelvis comp/trans. TECHNIQUE: Multiple real-time grayscale images were obtained of the pelvis in various projections endovaginally. Transabdominal imaging was also performed. INDICATION: Pelvic pain. Previous right oophorectomy. FINDINGS: The uterus measures 9.2 x 5.7 x 4.8 cm. Endometrial stripe measures 5 mm. There are no masses. There is an 8 mm nabothian cyst. The left ovary measures 4 x 2.7 cm. There is normal blood flow to the ovary. There is no free fluid. IMPRESSION: 1. Nabothian cyst of the cervix measuring less than 1 cm. 2. Left ovary appears normal. Dictated by: Dictated on workstation # [id number]
== END ==
LOC: RAD 17:24
PROVIDERS: ATTEND Family Medicine
DX: N88.8 Other specified noninflammatory disorders of cervix uteri (principal); R10.2 Pelvic and perineal pain; Z90.721 Acquired absence of ovaries, unilateral
CPT/HCPCS: 76830; 76856

== ENCOUNTER 2019-01-20 20:18 | Outpatient (CLI) | payer MEDICAID | END 2019-01-21 06:12 | disposition home or self-care (01) | LOC: SLEEP 20:18 | PROVIDERS: ATTEND Otolaryngology Otolaryngology/Facial Plastic Surgery | DX: G47.33 Obstructive sleep apnea (adult) (pediatric) (principal); G47.10 Hypersomnia, unspecified; R06.83 Snoring | CPT/HCPCS: 95810 ==

== ENCOUNTER 2019-04-15 17:26 | Emergency (ER) | payer MEDICAID ==
[~2019-04-15] VITALS: Ht 165.1 cm; Wt 90.7 kg
[~2019-04-15 17:26] MED LIST changes: +EPINEPHrine INJECTION 1 MG/ML AMP ONE; +FAMOTIDINE 20MG/2ML IV (PEPCID) ONE; +diphenhydrAMINE 50 MG/ML INJ (BENADRYL) ONE; +methylPREDNISolone 125 MG (Solu-MEDROL) VIAL ONE
[2019-04-15] MEDS: diphenhydrAMINE 50 MG/ML INJ (BENADRYL) IVP ONE (17:33)
[2019-04-15] MEDS: methylPREDNISolone 125 MG (Solu-MEDROL) VIAL IVP ONE (17:33)
[2019-04-15] MEDS: FAMOTIDINE 20MG/2ML IV (PEPCID) IVP ONE (17:34)
--- NOTE | 2019-04-15 17:57 | ED General ---
General Chief Complaint: Allergic Reaction Stated Complaint: ALLERGIC REACTION/FACIAL SWELLING/SOB Nursing Triage Note: PT AMB TO RM 7 WITH COMPLAINT OF ALLERGIC REACTION. STATES SHE TOOK LEVAQUIN AND CIPROFLOXACIN. STATES 20 MIN AFTER TAKING MEDS STARTED HAVING FACIAL SWELLING, REDNESS, THROAT DISCOMFORT AND ANXIETY. Nursing Sepsis Screen: No Definite Risk Source of Information: Patient Exam Limitations: No Limitations History of Present Illness Date Seen by Provider: Apr 15, 2019 Time Seen by Provider: 17:55 Initial Comments To ER with reports of allergic reaction. This began about 20 minutes after taking her first dose of Levaquin for an ear infection. She just had tympanostomy tubes placed in both ears yesterday by Dr. Calderón. She was given a prescription for Levaquin and Ciprodex drops. She developed itching of the face, swelling of the lips and tongue and a sensation of needing to clear her throat. She used to have an EpiPen when she was giving herself allergy shots but does not have that anymore. Timing/Duration: 1-2 Days Severity: Moderate Associated Systoms: Cough Allergies and Home Medications Allergies Coded Allergies: levofloxacin (Verified Allergy, Severe, 04/15/19) Penicillins (Verified Allergy, Unknown, 02/19/08) erythromycin base (Verified Allergy, Unknown, 02/19/08) Home Medications Cefdinir 300 Mg Capsule, 300 MG PO BID Prescribed by: SD MITCHELL on 04/15/191803 Prednisone 20 Mg Tab, 40 MG PO DAILY Prescribed by: SD MITCHELL on 04/15/191803 Patient Home Medication List Home Medication List Reviewed: Yes Review of Systems Review of Systems Constitutional: see HPI EENTM: see HPI Respiratory: no symptoms reported Cardiovascular: no symptoms reported Genitourinary: no symptoms reported Musculoskeletal: no symptoms reported Skin: see HPI Psychiatric/Neurological: No Symptoms Reported Hematologic/Lymphatic: No Symptoms Reported Immunological/Allergic: no symptoms reported Past Ampabby-Xaoyks-Opqxsk Hx Patient Social History Alcohol Use: Denies Use Recreational Drug Use: Yes (SMOKED POT YEARS AGO) Smoking Status: Current Everyday Smoker Type Used: Cigarettes 2nd Hand Smoke Exposure: Yes Recent Foreign Travel: No Contact w/Someone Who Travel: No Recent Infectious Disease Expo: No Recent Hopitalizations: No Physical Abuse: No Sexual Abuse: No Mistreated: No Fear: No Seasonal Allergies Seasonal Allergies: No Past Medical History Surgeries: Yes (EARS) Respiratory: Yes Cardiac: No Neurological: No Sexually Transmitted Disease: No Gastrointestinal: No Musculoskeletal: No Endocrine: No Blood Disorders: No Physical Exam Vital Signs Vital Signs - First Documented 04/15/19 17:28 Pulse 108 Resp 20 B/P (MAP) 136/95 (109) Pulse Ox 98 O2 Delivery Room Air Capillary Refill : Less Than 3 Seconds Height, Weight, BMI Height: 5'5.00" Weight: 200lbs. oz. 90.179804vf; BMI Method:Stated General Appearance: No Apparent Distress, WD/WN Eyes: Bilateral Eye Normal Inspection HEENT: PERRL/EOMI, TMs Normal, Normal ENT Inspection, Other (both lips are swollen, the face is erythematous, but tongue is questionable swollen. Lungs are clear. No other hives are noted.) Respiratory: No Accessory Muscle Use, No Respiratory Distress Cardiovascular: Regular Rate, Rhythm, Normal Peripheral Pulses Gastrointestinal: Normal Bowel Sounds, Non Tender, Soft Extremity: Normal Capillary Refill, Normal Inspection Neurologic/Psychiatric: Alert, Oriented x3, No Motor/Sensory Deficits, Normal Mood/Affect Skin: Normal Color, Warm/Dry Progress/Results/Core Measures Suspected Sepsis Recent Fever Within 48 Hours: No Infection Criteria Present: None New/Unexplained Altered Menta: No Sepsis Screen: No Definite Risk SIRS Temperature: Pulse: 108 Respiratory Rate: 20 Blood Pressure 136 /95 Mean: 109 Results/Orders My Orders Orders - SD MITCHELL APRN Ed Iv/Invasive Line Start (04/15/19 17:42) Diphenhydramine Injection (Benadryl Inje (04/15/19 17:45) Famotidine Injection (Pepcid Injection) (04/15/19 17:45) Methylprednisolone Sod Succ (Solu-Medrol (04/15/19 17:45) Epinephrine 1 Mg Injection (Adrenalin I (04/15/19 18:30) Medications Given in ED Current Medications Medications Dose Ordered Sig/Tiny Route Start Time Stop Time Status Last Admin Dose Admin Diphenhydramine HCl 25 mg ONCE ONCE IVP 04/15/19 17:45 04/15/19 17:46 DC 04/15/19 17:33 25 MG Famotidine 20 mg ONCE ONCE IVP 04/15/19 17:45 04/15/19 17:46 DC 04/15/19 17:34 20 MG Methylprednisolone Sodium Succinate 125 mg ONCE ONCE IVP 04/15/19 17:45 04/15/19 17:46 DC 04/15/19 17:33 125 MG Vital Signs/I&O 04/15/19 17:28 Pulse 108 Resp 20 B/P (MAP) 136/95 (109) Pulse Ox 98 O2 Delivery Room Air Capillary Refill : Less Than 3 Seconds Blood Pressure Mean: 109 Departure Communication (Admissions) 1817-face appears less red though lips are still swollen and she still complains of a sensation of needing to clear her throat, sensation of tongue being swollen. States that she has received epinephrine injections before and they have been the only thing to reverse her allergic reactions in the past. I went ahead and gave 0.3 mg of 1-1000 epinephrine left deltoid. Impression Primary Impression: Allergic reaction Qualified Codes: T78.40XA - Allergy, unspecified, initial encounter Disposition: HOME, SELF-CARE Condition: Stable Departure-Patient Inst. Decision time for Depature: 18:02 Referrals: JOSE RAMON MAYORGA MD (PCP/Family) Primary Care Physician Patient Instructions: Drug Allergy Add. Discharge Instructions: 1. Steroids as directed 2. Stop taking the Levaquin, change to the new medication called Cefdinir. The eardrops are of the same class of medication as Levaquin so they should be stopped as well. Call Dr. Calderón's office tomorrow to ask for a suggestion for different type of eardrops. Take one Benadryl tablet every 4-6 hours for any itching. Return to ER for any concerns. Scripts Epinephrine (Epipen 2-Leo) 0.3 Mg/0.3 Ml Auto.injct 0.3 MG IJ PRN, #2 EA Prov: SD MITCHELL APRN 04/15/19 Cefdinir (Cefdinir) 300 Mg Capsule 300 MG PO BID, #14 CAP Prov: SD MITCHELL APRN 04/15/19 Prednisone (Prednisone) 20 Mg Tab 40 MG PO DAILY, #6 TAB 0 Refills Prov: SD MITCHELL APRN 04/15/19 SD MITCHELL APRN Apr 15, 2019 17:57
[2019-04-15] MEDS ORDERED: CEFD300C3 PO (18:04)
[2019-04-15] MEDS ORDERED: PRD20T PO (18:04)
[2019-04-15] MEDS: EPINEPHrine INJECTION 1 MG/ML AMP IM ONE (18:17)
[2019-04-15] MEDS ORDERED: EPIN0.3P3 IJ (18:30)
[2019-04-15 18:56] VITALS: BP 133/92
== END 2019-04-15 18:56 | disposition home or self-care (01) ==
LOC: EDUNIT# 17:26 → ER 17:27
DX: T78.40XA Allergy, unspecified, initial encounter (principal); F17.210 Nicotine dependence, cigarettes, uncomplicated; Z88.1 Allergy status to other antibiotic agents; Z88.0 Allergy status to penicillin
CPT/HCPCS: 96372; 96374; 96375

== ENCOUNTER 2020-04-19 07:51 | Emergency (ER) | payer SELFPAY ==
[~2020-04-19] VITALS: Ht 170.1 cm; Wt 99.7 kg
[~2020-04-19 07:51] MED LIST changes: +CEFD300C3 PO; +EPIN0.3P3 IJ; -EPINEPHrine INJECTION 1 MG/ML AMP ONE; -FAMOTIDINE 20MG/2ML IV (PEPCID) ONE; +PRD20T PO; -diphenhydrAMINE 50 MG/ML INJ (BENADRYL) ONE; -methylPREDNISolone 125 MG (Solu-MEDROL) VIAL ONE
--- NOTE | 2020-04-19 09:00 | ED Integumentary General ---
General Chief Complaint: Skin/Wound Problems Stated Complaint: SORE AND RASH ON LEFT ARM Nursing Triage Note: AMB TO ROOM REPORTS FOR THE PAST YEARS HAS HAD PROBLEMS OF INFECTION IN L ARM FOR PAST YEAR. WORSE THIS LAST WEEK. SAW HER DR BUT DID NOT MENTION THAT SHE WAS HAVING A PROBLEM WITH HER L ARM. SM WOUND AREA BETWEEN 2ND AND 3RD FINGER. REDNESS NOTED ON L FOREARM Source: patient Exam Limitations: no limitations History of Present Illness Date Seen by Provider: Apr 19, 2020 Time Seen by Provider: 08:17 Initial Comments Patient arrives ER by private conveyance with chief complaint of painful redness starting out as a blister on her distal fingertip on the left hand radiating up into her hand and forearm. She's had this about for 5 times now over the past year. His been diagnosed in the past as an ingrown fingernail and put on antibiotics. She follows with Dr. Mayorga for primary care. She's not on any medicines presently. She denies a history of immunocompromise. She does endorse a lot of stress lately. Allergies and Home Medications Allergies Coded Allergies: levofloxacin (Verified Allergy, Severe, 04/15/19) Penicillins (Verified Allergy, Unknown, 02/19/08) erythromycin base (Verified Allergy, Unknown, 02/19/08) Home Medications Cefdinir 300 Mg Capsule, 300 MG PO BID Prescribed by: SD MITCHELL on 04/15/191803 Epinephrine 0.3 Mg/0.3 Ml Auto.injct, 0.3 MG IJ PRN Prescribed by: SD MITCHELL on 04/15/19 183 Prednisone 20 Mg Tab, 40 MG PO DAILY Prescribed by: SD MITCHELL on 04/15/191803 Patient Home Medication List Home Medication List Reviewed: Yes Review of Systems Review of Systems Constitutional: No chills, No fever EENTM: No ear discharge, No ear pain Respiratory: No cough, No short of breath Cardiovascular: No edema, No Hx of Intervention Gastrointestinal: No abdominal pain, No nausea, No vomiting Genitourinary: No discharge, No dysuria Musculoskeletal: No back pain, No joint pain Skin: see HPI, change in color All Other Systems Reviewed Negative Unless Noted: Yes Past Mjejaxr-Qpxnlz-Jhvufu Hx Patient Social History Alcohol Use: Occasionally Uses Recreational Drug Use: Yes (SMOKED POT YEARS AGO) Smoking Status: Current Everyday Smoker Type Used: Cigarettes 2nd Hand Smoke Exposure: Yes Recent Foreign Travel: No Contact w/Someone Who Travel: No Recent Infectious Disease Expo: No Recent Hopitalizations: No Seasonal Allergies Seasonal Allergies: No Past Medical History Surgeries: Yes (EARS) Respiratory: Yes Cardiac: No Neurological: No Sexually Transmitted Disease: No Gastrointestinal: No Musculoskeletal: No Endocrine: No Psychosocial: Yes Depression Blood Disorders: No Physical Exam Vital Signs Vital Signs - First Documented 04/19/20 07:59 Temp 36.8 Pulse 96 Resp 18 B/P (MAP) 135/60 (85) Pulse Ox 97 O2 Delivery Room Air Capillary Refill : Less Than 3 Seconds General Appearance: WD/WN, no apparent distress HEENT: PERRL/EOMI, pharynx normal Neck: full range of motion, normal inspection Cardiovascular: normal peripheral pulses, regular rate, rhythm Respiratory: lungs clear, normal breath sounds, no respiratory distress, no accessory muscle use Neurologic/Psychiatric: no motor/sensory deficits, alert, normal mood/affect, oriented x 3 Skin: rash (erythematous tender rash in a dermatomal fashion involving the left hand index finger and running up the left forearm about 15 7 m. There is a clear fluid filled vesicle at the base of the index finger and some erythema around the base of the index finger nail.) Progress/Results/Core Measures Results/Orders Vital Signs/I&O 04/19/20 07:59 Temp 36.8 Pulse 96 Resp 18 B/P (MAP) 135/60 (85) Pulse Ox 97 O2 Delivery Room Air Blood Pressure Mean: 85 Progress Progress Note : Time: 08:58 Progress Note Skin is intact. She appears to have herpetic vee. She does not appear to have a couple infection with bacteria at this time however we did discuss starting Keflex if that should happen. Workup put her on acyclovir encourage her to follow-up with her primary care doctor for treatment as necessary in the future. Gabapentin 100 mg 3 times a day as needed for pain. Capsaicin cream. 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 Decision time for Depature: 08:30 Referrals: JOSE RAMON MAYORGA MD (PCP/Family) Primary Care Physician Patient Instructions: Herpetic Vee (DC) Add. Discharge Instructions: Apply capsaicin oil/cream every 4 hours as necessary for pain. You can find this in the muscle rub I'll of your favorite pharmacy. Tylenol 1000 mg every 8 hours as necessary for pain. Ibuprofen 800 mg every 8 hours as necessary for pain. Gabapentin 1 tablet every 8 hours as necessary for pain. May cause drowsiness. You can discuss with your primary care doctor if you need to go up on the dose. Acyclovir one tablet 5 times a day for one week. In the future as soon as you notice any symptoms you need to start this medication to get the full effect. Talk your primary care doctor about prescribing a dose. If you begin to have purulent discharge from the wound, swelling or fever this suggest that you may have a bacterial infection as well. Then you should start the Keflex one capsule 4 times a day and follow-up with a doctor. All discharge instructions reviewed with patient and/or family. Voiced understanding. Scripts Cephalexin (Cephalexin) 500 Mg Tablet 500 MG PO QID for 7 Days, #28 TAB 0 Refills Prov: LACEY GARNICA 04/19/20 Acyclovir (Acyclovir) 800 Mg Tablet 800 MG PO 5XD for 7 Days, #35 TAB 0 Refills Prov: LACEY GARNICA 04/19/20 Gabapentin (Gabapentin) 100 Mg Capsule 100 MG PO Q8H PRN for PAIN-BREAKTHROUGH for 7 Days, #30 CAP 0 Refills Prov: LACEY GARNICA 04/19/20 Work/School Note: Work Release Form Date Seen in the Emergency Department: Apr 19, 2020 Return to Work: Apr 20, 2020 Restrictions: Need Release from Doctor Other Restrictions Listed Below: No direct patient contact with left hand until 04/26/20. LACEY GARNICA Apr 19, 2020 09:00
[2020-04-19] MEDS ORDERED: CEPH500T PO (09:06)
[2020-04-19] MEDS ORDERED: GABA-486 PO (09:06)
[2020-04-19] MEDS ORDERED: ACYC800T PO (09:06)
[2020-04-19 09:15] VITALS: BP 135/60
== END 2020-04-19 09:15 | disposition home or self-care (01) ==
LOC: EDUNIT# 07:51 → ER 07:55
DX: B00.89 Other herpesviral infection (principal); I89.1 Lymphangitis; F17.210 Nicotine dependence, cigarettes, uncomplicated; Z88.0 Allergy status to penicillin; Z88.1 Allergy status to other antibiotic agents; Z79.52 Long term (current) use of systemic steroids
CPT/HCPCS: 99282

== ENCOUNTER 2022-10-03 10:51 | Emergency (ER) | payer SELFPAY ==
[~2022-10-03] VITALS: Ht 165 cm; Wt 111.0 kg
[~2022-10-03 10:51] MED LIST changes: +ACYC-112 PO; +CEPH500T PO; +GABA-486 PO
[2022-10-03] MEDS ORDERED: HYDROcodone/APAP 7.5 MG/325 MG (LORTAB, LORCET PLUS) TABLET PO STA (11:35)
--- NOTE | 2022-10-03 11:39 | ED Lower Extremity ---
General Chief Complaint: Lower Extremity Stated Complaint: RT ANKLE INJ Nursing Triage Note: PT TO RM 3 PER W/C PT STATES TWISTED R ANKLE GOING DOWN STAIRS. RATES PAIN /10. PT R ANKLE SWOLLEN AND PAINFUL Source: patient Exam Limitations: no limitations History of Present Illness Date Seen by Provider: Oct 03, 2022 Time Seen by Provider: 11:36 Initial Comments Patient is a 32-year-old female presents ED with right lateral ankle pain. She states last night she tripped rolling her right ankle inwards. She fell forward hitting her left leg. She states she did hear a pop and a crack. She has not been able to bear weight since. She reported immediate swelling. Has been applying ice with some improvement of swelling. Pain with any type of movement of the right ankle. No obvious bone deformity. Neurovascularly intact. No history of previous injury to this ankle. Patient denies left leg pain, chest pain, Jori pain, nausea, vomiting, diarrhea Allergies and Home Medications Allergies Coded Allergies: levofloxacin (Verified Allergy, Severe, 04/15/19) Penicillins (Verified Allergy, Unknown, 02/19/08) erythromycin base (Verified Allergy, Unknown, 02/19/08) Patient Home Medication List Home Medication List Reviewed: Yes Acyclovir (Acyclovir) 800 Mg Tablet, 800 MG PO 5XD Prescribed by: LACEY GARNICA on 04/19/20905 Cefdinir (Cefdinir) 300 Mg Capsule, 300 MG PO BID Prescribed by: SD MITCHELL on 04/15/19 1804 Cephalexin (Cephalexin) 500 Mg Tablet, 500 MG PO QID Prescribed by: LACEY GARNICA on 04/19/20 09 Epinephrine (Epipen 2-Leo) 0.3 Mg/0.3 Ml Auto.injct, 0.3 MG IJ PRN Prescribed by: SD MITCHELL on 04/15/19 183 Fluoxetine Hcl (Fluoxetine Hcl) 40 Mg Capsule, (Reported) Entered as Reported by: DORA APONTE on 06/25/09 1102 Gabapentin (Gabapentin) 100 Mg Capsule, 100 MG PO Q8H PRN for PAIN-BREAKTHROUGH Prescribed by: LACEY GARNICA on 04/19/20 09 Hydrocodone/Acetaminophen (Hydrocodone-Acetamin 5-325 mg) 5 Mg-325 Mg Tablet, 1 TAB PO Q4H PRN for PAIN-MODERATE (5-7) Prescribed by: ASHLEY KOLB on 10/03/22 1213 Ibuprofen (Ibuprofen) 600 Mg Tablet, 600 MG PO Q8H Prescribed by: ASHLEY KOLB on 10/03/22 1213 Prednisone (Prednisone) 20 Mg Tab, 40 MG PO DAILY Prescribed by: SD MITCHELL on 04/15/19 1804 Review of Systems Constitutional: No chills, No diaphoresis EENTM: No ear pain, No blurred vision, No hoarseness, No mouth pain, No mouth swelling Respiratory: No cough Cardiovascular: No chest pain Gastrointestinal: No abdominal pain, No diarrhea, No nausea, No vomiting Genitourinary: No decreased output, No discharge Musculoskeletal: No back pain; joint pain, joint swelling Skin: No change in color, No change in hair/nails All Other Systems Reviewed Negative Unless Noted: Yes Past Dogenxo-Gpajgl-Xfpcdj Hx Patient Social History Tobacco Use?: Yes Tobacco type used: Cigarettes Smoking Status: Current Everyday Smoker Substance use?: No Alcohol Use?: Yes Alcohol type: Beer, Wine Alcohol Frequency: Once in a while Pt feels they are or have been: No Immunizations Up To Date Influenza Vaccine Up-to-Date: No; Not Current First/Initial COVID19 Vaccinat: YES Seasonal Allergies Seasonal Allergies: No Past Medical History Surgery/Hospitalization HX: 3 ENDOMETRIAL SURGIES, CARPAL TUNNEL R HAND, WISDOM TEETH, DEPRESSION, Surgeries: Yes (EARS) Respiratory: Yes Cardiac: No Neurological: No Last Menstrual Period: Sep 20, 2022 Sexually Transmitted Disease: No Gastrointestinal: No Musculoskeletal: No Endocrine: No Psychosocial: Yes Depression Blood Disorders: No Physical Exam Vital Signs Vital Signs - First Documented 10/03/22 11:09 Temp 36.4 Pulse 99 Resp 18 B/P (MAP) 152/104 (120) Pulse Ox 96 Capillary Refill : Less Than 3 Seconds Height, Weight, BMI Height: 5'5.00" Weight: 200lbs. oz. [id number]; 40.00 BMI Method:Stated General Appearance: WD/WN, no apparent distress HEENT: PERRL/EOMI, normal ENT inspection, TMs normal, pharynx normal Neck: non-tender, full range of motion, supple Cardiovascular: regular rate, rhythm, no edema, no gallop Respiratory: chest non-tender, lungs clear, normal breath sounds, no respiratory distress Gastrointestinal: normal bowel sounds, non tender, soft, no organomegaly Back: normal inspection, no CVA tenderness Hips: bilateral hip non-tender, bilateral hip normal inspection, bilateral hip normal range of motion Knees: bilateral knee non-tender, bilateral knee normal inspection, bilateral knee normal range of motion Ankles: left ankle pain, left ankle soft tissue tenderness, left ankle swelling Feet: bilateral foot non-tender, bilateral foot normal inspection, bilateral foot normal range of motion 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 (10/03/22 11:35) Vital Signs/I&O 10/03/22 11:09 Temp 36.4 Pulse 99 Resp 18 B/P (MAP) 152/104 (120) Pulse Ox 96 Blood Pressure Mean: 120 Departure Communication (PCP) I reviewed the x-ray which did not show any acute fracture. Radiologist read did not show any acute fracture. Lateral ankle swelling. Neurovascular intact. Was given a dose of pain medication here. Ice was applied. Discussed these results with patient. Concerning for an ankle sprain. She is still not wanting to bear weight secondary to the pain. We will provide a boot for comfort to wear for the next 1 to 2 weeks. Discussed range of motion exercises at home to help strengthen the right ankle. Crutches were provided for stability. Recommend ice, elevate. Orthopedic outpatient follow-up in few weeks if pain progress or worsen. Discussed potential length of symptoms with these type of injuries. Further evaluation may be needed with imaging. Return precaution were discussed with patient. Prescribed ibuprofen to help with pain and swelling and a few days worth of hydrocodone for breakthrough pain. Avoid driving with hydrocodone. Impression Primary Impression: Sprain and strain of ankle Disposition: HOME, SELF-CARE Condition: Stable Departure-Patient Inst. Decision time for Depature: 12:12 Referrals: NO,LOCAL PHYSICIAN (PCP) Primary Care Physician XOCHILT EPSTEIN MD Patient Instructions: Ankle Sprain (DC) Add. Discharge Instructions: Recommend ibuprofen to help with pain and swelling. We will provide hydrocodone for breakthrough pain. Ice and elevate at home 3-4 times a day for the next 2 or 3 days for at least 20 minutes per session. Boot for comfort for the next 1 to 2 weeks. Recommend range of motion exercises to continue strengthening. Crutches to help as needed. All discharge instructions reviewed with patient and/or family. Voiced understanding. Scripts Hydrocodone/Acetaminophen (Hydrocodone-Acetamin 5-325 mg) 5 Mg-325 Mg Tablet 1 TAB PO Q4H PRN for PAIN-MODERATE (5-7), #8 TAB Prov: MADHU EDWARDS 10/03/22 Ibuprofen (Ibuprofen) 600 Mg Tablet 600 MG PO Q8H for PAIN, #20 TAB 0 Refills Prov: MADHU EDWARDS 10/03/22 Work/School Note: Work Release Form Date Seen in the Emergency Department: Oct 03, 2022 Return to Work: Oct 09, 2022 MADHU EDWARDS Oct 03, 2022 11:38
--- NOTE | 2022-10-03 12:00 | Diagnostic Imaging Report ---
INDICATION: Lateral ankle pain COMPARISON: None available. TECHNIQUE: 3 radiographs of the right ankle dated 10/03/2022. FINDINGS: No acute fracture or dislocation. No destructive osseous process. The talar dome is unremarkable. Ankle mortise is symmetric. Acute swelling is noted about the ankle, particularly laterally. No suspicious radiopaque foreign body. No evidence of tarsal coalition. IMPRESSION: No acute osseous abnormality with soft tissue swelling about the ankle, particularly laterally. Dictated by: Dictated on workstation # [id number]
[2022-10-03] MEDS ORDERED: ACHD5005 PO (12:13)
[2022-10-03] MEDS ORDERED: IBUP-1773 PO (12:13)
[2022-10-03 13:00] VITALS: BP 140/96
== END 2022-10-03 13:03 | disposition home or self-care (01) ==
LOC: EDUNIT# 10:51 → ER 10:54
DX: S93.401A Sprain of unspecified ligament of right ankle, initial encounter (principal); S96.911A Strain of unspecified muscle and tendon at ankle and foot level, right foot, initial encounter; F17.210 Nicotine dependence, cigarettes, uncomplicated; Z28.311 Partially vaccinated for COVID-19; W01.10XA Fall on same level from slipping, tripping and stumbling with subsequent striking against unspecified object, initial encounter; X50.1XXA Overexertion from prolonged static or awkward postures, initial encounter
CPT/HCPCS: 73610; 99282; L4350